=== PATIENT | male | born 1935 | race Caucasian/White ===

== ENCOUNTER 2017-07-20 20:34 | Inpatient (IN) | payer OTHER ==
[~2017-07-20] VITALS: Ht 185.4 cm; Wt 107.5 kg
[~2017-07-20 20:34] MED LIST: ALBU2.5V7 INH; ALPHAGANP LEFT EYE; ASPI81TA2 PO; BRIN10DR EACH EYE; CELE200C PO; GLU850 PO; LATA2.5D2 EACH EYE; MONT10TA22 PO; OMEG1CAP55 PO; RESEYE EACH EYE; TRELEGY IH
[2017-07-20 20:36] VITALS: BP_SYST 122
[2017-07-20] MEDS ORDERED: ADENOSINE 6MG/2ML VIAL IVP ONE ×2 (21:00→21:30)
[2017-07-20] MEDS ORDERED: NACL 0.9% 1,000 ML IV ONE ×3 (21:00→23:30)
[2017-07-20 21:18] LABS: BASOPHILS % (AUTO) 0.3 % (0.0-2.0); EOSINOPHILS # (AUTO) 0.3 K/uL (0.0-0.4); EOSINOPHILS % (AUTO) 1.9 % (0.0-4.0); HEMATOCRIT 48.3 % (36-54); HEMOGLOBIN 16.3 g/dL (14.0-18.0); LYMPHOCYTES # (AUTO) 1.3 K/uL (1.0-5.5); LYMPHOCYTES % (AUTO) 8.9 % (20.5-51.5); MEAN CORPUSCULAR HEMOGLOBIN 30 pg (27-31); MEAN CORPUSCULAR HGB CONC 34 % (32-36); MEAN CORPUSCULAR VOLUME 90 fL (79.0-98.0); MONOCYTES # (AUTO) 0.6 K/uL (0.0-1.0); MONOCYTES % (AUTO) 4.2 % (1.7-9.3); NEUTROPHILS # (AUTO) 11.9 K/uL (1.8-7.7); NEUTROPHILS % (AUTO) 84.7 % (40.0-70.0); PLATELET COUNT (AUTO) 222 K/uL (130-430); RED BLOOD CELL COUNT(AUTO) 5.37 MIL/uL (4.2-6.2); RED CELL DISTRIBUTION WIDTH 13.9 % (9.0-15.0); WHITE BLOOD COUNT (AUTO) 14.1 K/uL (4.8-10.8)
[2017-07-20 21:39] LABS: ANION GAP 9 (5-15); CALCIUM 8.9 mg/dL (8.4-11.0); CHLORIDE 104 mmol/L (98-107); CREATININE 1.06 mg/dL (0.55-1.30); GLUCOSE 153 mg/dL (70-99); POTASSIUM 3.3 mmol/L (3.5-5.1); SODIUM SERUM 140 mmol/L (136-145); UREA NITROGEN, BLOOD 30 mg/dL (8-21)
[2017-07-20] MEDS ORDERED: METOPROLOL TARTRATE 5 MG/5 ML VIAL IVP ONE (21:45)
[2017-07-20 21:50] LABS: ALANINE AMINOTRANSFERASE 40 U/L (12-78); ALBUMIN 2.6 g/dL (3.4-4.8); ASPARTATE AMINOTRANSFERASE 28 U/L (10-37); TOTAL BILIRUBIN 1.1 mg/dL (0.0-1.0)
[2017-07-20] MEDS ORDERED: ASPIRIN 325 MG TABLET PO ONE (22:00)
[2017-07-20] MEDS ORDERED: DULR10 RC (22:18)
[2017-07-20] MEDS ORDERED: INSU100V11 SQ (22:18)
[2017-07-20] MEDS ORDERED: DOCU250C PO (22:18)
[2017-07-20] MEDS ORDERED: FLO110 INH (22:18)
[2017-07-20] MEDS ORDERED: MAGN400O4 PO (22:18)
[2017-07-20] MEDS ORDERED: SSNOVOLOG SUBCUT (22:18)
[2017-07-20] MEDS ORDERED: ATRMDI INH (22:18)
[2017-07-20] MEDS ORDERED: ASPI81TA2 PO (22:18)
[2017-07-20] MEDS ORDERED: TRAM50TA92 PO (22:18)
[2017-07-20] MEDS ORDERED: DILTIAZEM HCL 25 MG/5 ML VIAL IVP ONE (23:15)
[2017-07-20] MEDS ORDERED: POTASSIUM CHLORIDE 20 MEQ TAB.PRT.SR PO ONE (23:30)
[2017-07-20] MEDS ORDERED: cefTRIAXone 1 GM IVPB PREMIX 50 ML IV ONE (23:30)
[2017-07-20] MEDS ORDERED: ENOXAPARIN SODIUM 100 MG/ML SYRINGE SUBCUT ONE (23:30)
[2017-07-20 23:32] LABS: BILIRUBIN,URINE 1+ (NEGATIVE); BLOOD, URINE 3+ (NEGATIVE); CLARITY/URINE CLOUDY (CLEAR); COLOR,URINE YELLOW (YELLOW); GLUCOSE,URINE NEGATIVE (NEGATIVE); KETONES,URINE TRACE (NEGATIVE); LEUKOCYTE ESTERASE ,URINE 1+ (NEGATIVE); NITRITE, URINE NEGATIVE (NEGATIVE); PROTEIN URINE 2+ (NEGATIVE); UROBILINOGEN,URINE 0.2 (0.2-1.0)
[2017-07-20 23:45] LABS: BACTERIA,URINE MODERATE /HPF (None Seen); RBC,URINE 20-50 /HPF (0-3)
[2017-07-20] MEDS ORDERED: CELECOXIB 200 MG CAPSULE PO PRN (23:45)
[2017-07-20] MEDS ORDERED: BISACODYL 10 MG/SUPPOSITORY RC SCH (23:45)
[2017-07-20] MEDS ORDERED: NACL 0.9% 1,000 ML IV SCH (23:45)
[2017-07-20] MEDS ORDERED: MILK OF MAGNESIA 30 ML UDC PO SCH (23:45)
[2017-07-20] MEDS ORDERED: traMADol HCL HCL 50 MG TABLET (ULTRAM) PO PRN (23:45)
[2017-07-20 23:46] LABS: MUCUS,URINE None Seen /LPF (None Seen); URIC ACID CRYSTALS,URINE 0-10 /HPF (None Seen)
[2017-07-21] VITALS (7 sets, daily range): BP systolic 94–135
[2017-07-21] MEDS ORDERED: DEXTROSE 50% JECT 50 ML DISP.SYRIN IVP PRN
[2017-07-21] MEDS ORDERED: 0.45% NS 500 ML IV ONE
[2017-07-21] MEDS ORDERED: DIGOXIN 0.5 MG/2 ML AMP IVP SCH (00:15)
[2017-07-21] MEDS ORDERED: cefTRIAXone 1 GM IVPB PREMIX 50 ML IV ONE (00:24)
[2017-07-21] MEDS: DILTIAZEM HCL 30 MG TABLET PO SCH ×4 (00:32→17:34)
[2017-07-21] MEDS: PANTOPRAZOLE SODIUM 40 MG/VIAL (PROTONIX) IVP SCH ×2 (00:46→08:46)
[2017-07-21 01:13] LABS: INR 1.1 (0.80-1.20); PROTHROMBIN TIME 10.8 SECS (9.5-12.5)
[2017-07-21] MEDS: INSULIN REGULAR, HUMAN 100 UNITS/ML, 10 ML VIAL (novoLIN R) SUBCUT PRN ×2 (06:02→17:37)
[2017-07-21 07:50] LABS: ALANINE AMINOTRANSFERASE 47 U/L (12-78); ALBUMIN 2.2 g/dL (3.4-4.8); ANION GAP 11 (5-15); ASPARTATE AMINOTRANSFERASE 30 U/L (10-37); CALCIUM 8.2 mg/dL (8.4-11.0); CHLORIDE 104 mmol/L (98-107); CHOLESTEROL 135 mg/dL (<200); CREATININE 1.01 mg/dL (0.55-1.30); GLUCOSE 143 mg/dL (70-99); HDL CHOLESTEROL 48 mg/dL (>45); LDL CHOLESTEROL 74 mg/dL (<100); LIPASE 96 U/L (73-393); POTASSIUM 4.1 mmol/L (3.5-5.1); SODIUM SERUM 137 mmol/L (136-145); THYROID STIMULATING HORMONE 1.74 uIu/mL (0.34-4.82); TOTAL BILIRUBIN 0.9 mg/dL (0.0-1.0); TRIGLYCERIDES 60 mg/dL (30-150); UREA NITROGEN, BLOOD 28 mg/dL (8-21)
[2017-07-21 07:58] LABS: BASOPHILS % (AUTO) 0.2 % (0.0-2.0); EOSINOPHILS # (AUTO) 0.5 K/uL (0.0-0.4); EOSINOPHILS % (AUTO) 2.9 % (0.0-4.0); HEMATOCRIT 44.8 % (36-54); HEMOGLOBIN 15.1 g/dL (14.0-18.0); LYMPHOCYTES # (AUTO) 1.3 K/uL (1.0-5.5); LYMPHOCYTES % (AUTO) 7.2 % (20.5-51.5); MEAN CORPUSCULAR HEMOGLOBIN 31 pg (27-31); MEAN CORPUSCULAR HGB CONC 34 % (32-36); MEAN CORPUSCULAR VOLUME 90 fL (79.0-98.0); MONOCYTES # (AUTO) 0.9 K/uL (0.0-1.0); MONOCYTES % (AUTO) 5.1 % (1.7-9.3); NEUTROPHILS # (AUTO) 15.5 K/uL (1.8-7.7); NEUTROPHILS % (AUTO) 84.6 % (40.0-70.0); RED BLOOD CELL COUNT(AUTO) 4.97 MIL/uL (4.2-6.2); RED CELL DISTRIBUTION WIDTH 14.2 % (9.0-15.0)
[2017-07-21 08:27] LABS: WHITE BLOOD COUNT (AUTO) 18.2 K/uL (4.8-10.8)
[2017-07-21] MEDS: DORZOLAMIDE 2% OPHTHALMIC SOLN 5ML OP SCH ×4 (08:45→20:49)
[2017-07-21] MEDS: MONTELUKAST 10 MG TABLET PO SCH (08:46)
[2017-07-21] MEDS: ASPIRIN 81 MG TAB.CHEW PO SCH (08:46)
[2017-07-21] MEDS: ENOXAPARIN SODIUM 100 MG/ML SYRINGE SUBCUT SCH ×2 (08:46→20:50)
[2017-07-21] MEDS ORDERED: DIATR MEGLU/DIATRIZ SOD 30 ML SOLUTION PO ONE (08:46)
[2017-07-21] MEDS ORDERED: AMIODARONE HCL 200 MG TABLET PO SCH (09:00)
[2017-07-21] MEDS ORDERED: FLUTICASONE PROPIONATE 110 mCg/ACTUATION, 12 GM AER.W.ADAP INH SCH (09:00)
[2017-07-21 09:46] LABS: PLATELET COUNT (AUTO) 298 K/uL (130-430)
[2017-07-21] MEDS ORDERED: IOHEXOL 100 ML IV ONE (11:27)
[2017-07-21] MEDS ORDERED: AMIODARONE HCL 200 MG TABLET PO ONE (15:30)
[2017-07-21] MEDS: PIPERACILLIN/TAZO 3.375/DEX-IS 50 ML IV SCH ×2 (15:35→21:08)
[2017-07-21] MEDS ORDERED: DILTIAZEM HCL 125 MG in D5W 100 ML IV SCH ×2 (17:45→18:00)
[2017-07-21] MEDS: LATANOPROST 2.5 ML DROPS (XALATAN) OP SCH (18:23)
[2017-07-21] MEDS ORDERED: MAGNESIUM CITRATE 300 ML ORAL SOLUTION PO ONE (18:57)
[2017-07-21] MEDS ORDERED: MINERAL OIL 30 ML UDC PO ONE (18:58)
[2017-07-21] MEDS: IPRATROPIUM BROM 0.5 MG/2.5 ML VIAL.NEB (ATROVENT) INH SCH (19:51)
[2017-07-21] MEDS: METOPROLOL TARTRATE 5 MG/5 ML VIAL IVP PRN ×2 (20:42→23:52)
[2017-07-21] MEDS: cycloSPORINE 0.05%, 0.4 ML OPHTHALMIC EMULSION DROPERETTE OP SCH (20:49)
[2017-07-21] MEDS: BRIMONIDINE TARTRATE 0.2% 5 mL EYE DROPS OP SCH (21:00)
[2017-07-21] MEDS ORDERED: BRIMONIDINE TARTRATE 0.1% 5 mL EYE DROPS OP SCH (21:00)
[2017-07-21] MEDS: AMIODARONE HCL 200 MG TABLET PO SCH (21:08)
[2017-07-22] VITALS (14 sets, daily range): BP systolic 91–186
[2017-07-22] MEDS: METOPROLOL TARTRATE 5 MG/5 ML VIAL IVP PRN ×3 (02:58→09:16)
[2017-07-22] MEDS: PIPERACILLIN/TAZO 3.375/DEX-IS 50 ML IV SCH ×3 (05:26→22:07)
[2017-07-22] MEDS: IPRATROPIUM BROM 0.5 MG/2.5 ML VIAL.NEB (ATROVENT) INH SCH ×4 (06:55→19:37)
[2017-07-22 07:13] LABS: BASOPHILS % (AUTO) 0.3 % (0.0-2.0); EOSINOPHILS # (AUTO) 0.1 K/uL (0.0-0.4); EOSINOPHILS % (AUTO) 0.5 % (0.0-4.0); HEMATOCRIT 46.7 % (36-54); HEMOGLOBIN 15.6 g/dL (14.0-18.0); LYMPHOCYTES # (AUTO) 0.8 K/uL (1.0-5.5); LYMPHOCYTES % (AUTO) 5.2 % (20.5-51.5); MEAN CORPUSCULAR HEMOGLOBIN 30 pg (27-31); MEAN CORPUSCULAR HGB CONC 33 % (32-36); MEAN CORPUSCULAR VOLUME 90 fL (79.0-98.0); MONOCYTES # (AUTO) 0.4 K/uL (0.0-1.0); MONOCYTES % (AUTO) 2.7 % (1.7-9.3); NEUTROPHILS # (AUTO) 14.7 K/uL (1.8-7.7); NEUTROPHILS % (AUTO) 91.3 % (40.0-70.0); PLATELET COUNT (AUTO) 290 K/uL (130-430); RED CELL DISTRIBUTION WIDTH 14.1 % (9.0-15.0)
[2017-07-22 08:00] LABS: ANION GAP 13 (5-15); CHLORIDE 104 mmol/L (98-107); POTASSIUM 3.4 mmol/L (3.5-5.1); SODIUM SERUM 137 mmol/L (136-145)
[2017-07-22 08:01] LABS: ALANINE AMINOTRANSFERASE 37 U/L (12-78); ALBUMIN 2.4 g/dL (3.4-4.8); ASPARTATE AMINOTRANSFERASE 20 U/L (10-37); CALCIUM 8.5 mg/dL (8.4-11.0); CREATININE 1.04 mg/dL (0.55-1.30); GLUCOSE 108 mg/dL (70-99); TOTAL BILIRUBIN 1.1 mg/dL (0.0-1.0); UREA NITROGEN, BLOOD 27 mg/dL (8-21)
[2017-07-22] MEDS: AMIODARONE HCL 200 MG TABLET PO SCH (08:08)
[2017-07-22] MEDS: ASPIRIN 81 MG TAB.CHEW PO SCH (08:09)
[2017-07-22] MEDS: DOCUSATE SODIUM 250 MG CAPSULE PO SCH (08:09)
[2017-07-22] MEDS: MONTELUKAST 10 MG TABLET PO SCH (08:09)
[2017-07-22] MEDS: PANTOPRAZOLE SODIUM 40 MG/VIAL (PROTONIX) IVP SCH (08:10)
[2017-07-22] MEDS: BRIMONIDINE TARTRATE 0.2% 5 mL EYE DROPS OP SCH ×3 (08:12→21:24)
[2017-07-22] MEDS: cycloSPORINE 0.05%, 0.4 ML OPHTHALMIC EMULSION DROPERETTE OP SCH ×2 (08:14→21:24)
[2017-07-22] MEDS: DORZOLAMIDE 2% OPHTHALMIC SOLN 5ML OP SCH ×4 (08:15→21:33)
[2017-07-22] MEDS: ENOXAPARIN SODIUM 100 MG/ML SYRINGE SUBCUT SCH (08:15)
[2017-07-22] MEDS: DILTIAZEM HCL 60 MG TABLET PO SCH ×3 (08:30→21:25)
[2017-07-22] MEDS ORDERED: DILTIAZEM HCL 60 MG TABLET ONE (08:50)
[2017-07-22] MEDS ORDERED: METOPROLOL TARTRATE 5 MG/5 ML VIAL IVP PRN (11:30)
[2017-07-22] MEDS ORDERED: POTASSIUM CHLORIDE 20 MEQ TAB.PRT.SR PO ONE (12:45)
[2017-07-22] MEDS: ALBUTEROL SULFATE 0.083% 2.5 MG/3 ML VIAL.NEB INH PRN ×2 (13:08→14:47)
[2017-07-22] MEDS: INSULIN REGULAR, HUMAN 100 UNITS/ML, 10 ML VIAL (novoLIN R) SUBCUT PRN ×3 (13:46→22:46)
[2017-07-22] MEDS: FLUTICASONE FUROATE 100 MCG BLST.W.DEV INH SCH (13:48)
[2017-07-22] MEDS ORDERED: FUROSEMIDE 20 MG/2 ML VIAL IVP ONE (15:45)
[2017-07-22] MEDS ORDERED: methylPREDNISolone SOD SUCC/PF 62.5 MG/ML VIAL IVP ONE (15:45)
[2017-07-22] MEDS ORDERED: PROPOFOL DRIP 100 ML IV ONE (17:22)
[2017-07-22] MEDS: LevALBUTEROL HCL 1.25 MG/0.5 ML *CONC.* VIAL.NEB (XOPENEX CONC.) INH SCH (19:38)
[2017-07-22] MEDS: LATANOPROST 2.5 ML DROPS (XALATAN) OP SCH (19:43)
[2017-07-22] MEDS ORDERED: ETOMIDATE 20 MG/ 10 ML VIAL (AMIDATE) IVP ONE (20:11)
[2017-07-22] MEDS ORDERED: SUCCINYLCHOLINE CHLORIDE 20 MG/ML(QUELICIN) IVP ONE (20:11)
[2017-07-22 20:29] LABS: INR 1.1 (0.80-1.20); PROTHROMBIN TIME 11.4 SECS (9.5-12.5)
[2017-07-22] MEDS ORDERED: *HEPARIN PER PHARMACY XX PRN (20:50)
[2017-07-22] MEDS: POTASSIUM CHLORIDE 20 MEQ TAB.PRT.SR PO SCH (21:00)
[2017-07-22] MEDS ORDERED: AMIODARONE HCL 200 MG TABLET PO SCH (21:00)
[2017-07-22] MEDS: methylPREDNISolone SOD SUCC/PF 62.5 MG/ML VIAL IVP SCH (21:26)
[2017-07-22 21:36] LABS: BASOPHILS % (AUTO) 0.2 % (0.0-2.0); EOSINOPHILS % (AUTO) 0.1 % (0.0-4.0); HEMATOCRIT 43.2 % (36-54); HEMOGLOBIN 14.3 g/dL (14.0-18.0); LYMPHOCYTES # (AUTO) 0.3 K/uL (1.0-5.5); MEAN CORPUSCULAR HEMOGLOBIN 30 pg (27-31); MEAN CORPUSCULAR HGB CONC 33 % (32-36); MEAN CORPUSCULAR VOLUME 90 fL (79.0-98.0); MONOCYTES # (AUTO) 0.2 K/uL (0.0-1.0); MONOCYTES % (AUTO) 1.5 % (1.7-9.3); NEUTROPHILS # (AUTO) 13.1 K/uL (1.8-7.7); NEUTROPHILS % (AUTO) 96.2 % (40.0-70.0); PLATELET COUNT (AUTO) 270 K/uL (130-430); RED BLOOD CELL COUNT(AUTO) 4.78 MIL/uL (4.2-6.2); RED CELL DISTRIBUTION WIDTH 13.8 % (9.0-15.0); WHITE BLOOD COUNT (AUTO) 13.6 K/uL (4.8-10.8)
[2017-07-22 21:39] LABS: ANION GAP 10 (5-15); CALCIUM 8.3 mg/dL (8.4-11.0); CHLORIDE 105 mmol/L (98-107); CREATININE 1.33 mg/dL (0.55-1.30); GLUCOSE 168 mg/dL (70-99); POTASSIUM 3.8 mmol/L (3.5-5.1); SODIUM SERUM 138 mmol/L (136-145); UREA NITROGEN, BLOOD 33 mg/dL (8-21)
[2017-07-22] MEDS: HEPARIN 25,000 UNITS/D5W 250ML 250 ML IV PRN (21:39)
[2017-07-22 21:44] LABS: ALANINE AMINOTRANSFERASE 31 U/L (12-78); ALBUMIN 2.3 g/dL (3.4-4.8); ASPARTATE AMINOTRANSFERASE 19 U/L (10-37)
[2017-07-22] MEDS: D5LR 1,000 ML IV SCH (22:54)
[2017-07-22] MEDS: POTASSIUM CHLORIDE 20 MEQ/PKT PACKET PO SCH (23:01)
[2017-07-22] MEDS ORDERED: POTASSIUM CHLORIDE 20 MEQ/PKT PACKET ONE (23:05)
[2017-07-23] VITALS (33 sets, daily range): BP systolic 94–155
[2017-07-23] MEDS: LevALBUTEROL HCL 1.25 MG/0.5 ML *CONC.* VIAL.NEB (XOPENEX CONC.) INH SCH ×4 (00:56→19:58)
[2017-07-23] MEDS: IPRATROPIUM BROM 0.5 MG/2.5 ML VIAL.NEB (ATROVENT) INH SCH ×4 (00:57→19:58)
[2017-07-23] MEDS ORDERED: HEPARIN SODIUM,PORCINE 2000 UNITS/0.4 ML BOLUS IVP PRN (02:00)
[2017-07-23] MEDS ORDERED: HEPARIN SODIUM,PORCINE 3000 UNITS/0.6 ML BOLUS IVP PRN (02:00)
[2017-07-23 04:36] LABS: BASOPHILS % (AUTO) 0.2 % (0.0-2.0); HEMATOCRIT 42.5 % (36-54); HEMOGLOBIN 14.1 g/dL (14.0-18.0); LYMPHOCYTES # (AUTO) 0.4 K/uL (1.0-5.5); LYMPHOCYTES % (AUTO) 3.4 % (20.5-51.5); MEAN CORPUSCULAR HEMOGLOBIN 30 pg (27-31); MEAN CORPUSCULAR HGB CONC 33 % (32-36); MEAN CORPUSCULAR VOLUME 90 fL (79.0-98.0); MONOCYTES # (AUTO) 0.2 K/uL (0.0-1.0); MONOCYTES % (AUTO) 1.4 % (1.7-9.3); NEUTROPHILS # (AUTO) 10.5 K/uL (1.8-7.7); PLATELET COUNT (AUTO) 264 K/uL (130-430); RED BLOOD CELL COUNT(AUTO) 4.73 MIL/uL (4.2-6.2); RED CELL DISTRIBUTION WIDTH 13.9 % (9.0-15.0); WHITE BLOOD COUNT (AUTO) 11.1 K/uL (4.8-10.8)
[2017-07-23 04:45] LABS: ALANINE AMINOTRANSFERASE 30 U/L (12-78); ALBUMIN 2.1 g/dL (3.4-4.8); ANION GAP 8 (5-15); ASPARTATE AMINOTRANSFERASE 17 U/L (10-37); CALCIUM 8.2 mg/dL (8.4-11.0); CHLORIDE 102 mmol/L (98-107); CREATININE 1.28 mg/dL (0.55-1.30); GLUCOSE 276 mg/dL (70-99); POTASSIUM 3.7 mmol/L (3.5-5.1); SODIUM SERUM 134 mmol/L (136-145); TOTAL BILIRUBIN 0.8 mg/dL (0.0-1.0); UREA NITROGEN, BLOOD 35 mg/dL (8-21)
[2017-07-23] MEDS: PROPOFOL DRIP 100 ML IV PRN ×3 (04:59→18:30)
[2017-07-23] MEDS: PIPERACILLIN/TAZO 3.375/DEX-IS 50 ML IV SCH ×3 (05:04→21:39)
[2017-07-23] MEDS: methylPREDNISolone SOD SUCC/PF 62.5 MG/ML VIAL IVP SCH ×3 (05:05→21:39)
[2017-07-23] MEDS: DILTIAZEM HCL 60 MG TABLET PO SCH (05:05)
[2017-07-23] MEDS: INSULIN REGULAR, HUMAN 100 UNITS/ML, 10 ML VIAL (novoLIN R) SUBCUT PRN ×4 (06:28→21:29)
[2017-07-23] MEDS: POTASSIUM CHLORIDE 20 MEQ/PKT PACKET PO SCH ×2 (08:09→21:23)
[2017-07-23] MEDS: ASPIRIN 81 MG TAB.CHEW PO SCH (08:09)
[2017-07-23] MEDS: MONTELUKAST 10 MG TABLET PO SCH (08:09)
[2017-07-23] MEDS: POTASSIUM CHLORIDE 20 MEQ TAB.PRT.SR PO SCH (08:09)
[2017-07-23] MEDS: PANTOPRAZOLE SODIUM 40 MG/VIAL (PROTONIX) IVP SCH (08:10)
[2017-07-23] MEDS: AMIODARONE HCL 200 MG TABLET PO SCH ×2 (08:10→21:24)
[2017-07-23] MEDS: BRIMONIDINE TARTRATE 0.2% 5 mL EYE DROPS OP SCH ×3 (08:12→21:27)
[2017-07-23] MEDS: DORZOLAMIDE 2% OPHTHALMIC SOLN 5ML OP SCH ×4 (08:13→21:25)
[2017-07-23] MEDS: FLUTICASONE FUROATE 100 MCG BLST.W.DEV INH SCH (08:13)
[2017-07-23] MEDS: cycloSPORINE 0.05%, 0.4 ML OPHTHALMIC EMULSION DROPERETTE OP SCH ×2 (08:13→21:26)
[2017-07-23] MEDS: D5LR 1,000 ML IV SCH ×2 (08:16→18:30)
[2017-07-23] MEDS: HEPARIN 25,000 UNITS/D5W 250ML 250 ML IV PRN (16:49)
[2017-07-23] MEDS: LATANOPROST 2.5 ML DROPS (XALATAN) OP SCH (17:07)
[2017-07-24] VITALS (31 sets, daily range): BP systolic 106–148
[2017-07-24] MEDS: IPRATROPIUM BROM 0.5 MG/2.5 ML VIAL.NEB (ATROVENT) INH SCH ×4 (01:51→19:59)
[2017-07-24] MEDS: LevALBUTEROL HCL 1.25 MG/0.5 ML *CONC.* VIAL.NEB (XOPENEX CONC.) INH SCH ×4 (01:52→19:59)
[2017-07-24] MEDS: PROPOFOL DRIP 100 ML IV PRN ×2 (02:19→09:12)
[2017-07-24 05:59] LABS: HEMATOCRIT 40.7 % (36-54); HEMOGLOBIN 13.4 g/dL (14.0-18.0); LYMPHOCYTES # (AUTO) 0.3 K/uL (1.0-5.5); LYMPHOCYTES % (AUTO) 2.6 % (20.5-51.5); MEAN CORPUSCULAR HEMOGLOBIN 30 pg (27-31); MEAN CORPUSCULAR HGB CONC 33 % (32-36); MEAN CORPUSCULAR VOLUME 90 fL (79.0-98.0); MONOCYTES # (AUTO) 0.3 K/uL (0.0-1.0); MONOCYTES % (AUTO) 2.2 % (1.7-9.3); NEUTROPHILS % (AUTO) 95.2 % (40.0-70.0); PLATELET COUNT (AUTO) 267 K/uL (130-430); RED BLOOD CELL COUNT(AUTO) 4.52 MIL/uL (4.2-6.2); RED CELL DISTRIBUTION WIDTH 13.9 % (9.0-15.0); WHITE BLOOD COUNT (AUTO) 12.6 K/uL (4.8-10.8)
[2017-07-24 06:08] LABS: ANION GAP 10 (5-15); CALCIUM 8.2 mg/dL (8.4-11.0); CHLORIDE 104 mmol/L (98-107); CREATININE 1.16 mg/dL (0.55-1.30); GLUCOSE 393 mg/dL (70-99); POTASSIUM 3.7 mmol/L (3.5-5.1); SODIUM SERUM 138 mmol/L (136-145); UREA NITROGEN, BLOOD 36 mg/dL (8-21)
[2017-07-24] MEDS: PIPERACILLIN/TAZO 3.375/DEX-IS 50 ML IV SCH ×3 (06:10→21:39)
[2017-07-24] MEDS: D5LR 1,000 ML IV SCH (06:15)
[2017-07-24 06:17] LABS: ALANINE AMINOTRANSFERASE 28 U/L (12-78); ALBUMIN 2.2 g/dL (3.4-4.8); ASPARTATE AMINOTRANSFERASE 16 U/L (10-37); TOTAL BILIRUBIN 0.6 mg/dL (0.0-1.0)
[2017-07-24] MEDS: INSULIN REGULAR, HUMAN 100 UNITS/ML, 10 ML VIAL (novoLIN R) SUBCUT PRN ×4 (06:36→20:18)
[2017-07-24] MEDS: methylPREDNISolone SOD SUCC/PF 62.5 MG/ML VIAL IVP SCH ×2 (06:37→14:32)
[2017-07-24] MEDS: FLUTICASONE FUROATE 100 MCG BLST.W.DEV INH SCH (09:00)
[2017-07-24] MEDS: PANTOPRAZOLE SODIUM 40 MG/VIAL (PROTONIX) IVP SCH (09:15)
[2017-07-24] MEDS: DORZOLAMIDE 2% OPHTHALMIC SOLN 5ML OP SCH ×4 (09:15→20:12)
[2017-07-24] MEDS: BRIMONIDINE TARTRATE 0.2% 5 mL EYE DROPS OP SCH ×3 (09:16→20:11)
[2017-07-24] MEDS: ASPIRIN 81 MG TAB.CHEW PO SCH (09:16)
[2017-07-24] MEDS: MONTELUKAST 10 MG TABLET PO SCH (09:17)
[2017-07-24] MEDS: POTASSIUM CHLORIDE 20 MEQ/PKT PACKET PO SCH (09:20)
[2017-07-24] MEDS: AMIODARONE HCL 200 MG TABLET PO SCH ×2 (09:20→20:13)
[2017-07-24] MEDS: cycloSPORINE 0.05%, 0.4 ML OPHTHALMIC EMULSION DROPERETTE OP SCH ×2 (10:32→20:12)
[2017-07-24] MEDS ORDERED: INSULIN NPH 100 UNITS/ML 10 ML VIAL SUBCUT ONE (11:30)
[2017-07-24] MEDS: LR 1,000 ML IV SCH (13:01)
[2017-07-24] MEDS: LATANOPROST 2.5 ML DROPS (XALATAN) OP SCH (17:33)
[2017-07-24] MEDS: INSULIN NPH 100 UNITS/ML 10 ML VIAL SUBCUT SCH (17:41)
[2017-07-24] MEDS: HEPARIN 25,000 UNITS/D5W 250ML 250 ML IV PRN (19:36)
[2017-07-24] MEDS: methylPREDNISolone SOD SUCC 40 MG/ML VIAL IVP SCH (20:10)
[2017-07-25] VITALS (24 sets, daily range): BP systolic 129–167
[2017-07-25] MEDS: LevALBUTEROL HCL 1.25 MG/0.5 ML *CONC.* VIAL.NEB (XOPENEX CONC.) INH SCH ×4 (00:46→19:39)
[2017-07-25] MEDS: IPRATROPIUM BROM 0.5 MG/2.5 ML VIAL.NEB (ATROVENT) INH SCH ×4 (00:46→19:39)
[2017-07-25] MEDS: LR 1,000 ML IV SCH (04:20)
[2017-07-25] MEDS: IPRATROPIUM BROM 0.5 MG/2.5 ML VIAL.NEB (ATROVENT) INH PRN (05:39)
[2017-07-25] MEDS: LevALBUTEROL HCL 1.25 MG/0.5 ML *CONC.* VIAL.NEB (XOPENEX CONC.) INH PRN (05:40)
[2017-07-25] MEDS: PIPERACILLIN/TAZO 3.375/DEX-IS 50 ML IV SCH ×3 (06:14→21:08)
[2017-07-25] MEDS: INSULIN NPH 100 UNITS/ML 10 ML VIAL SUBCUT SCH ×2 (06:15→17:21)
[2017-07-25] MEDS: INSULIN REGULAR, HUMAN 100 UNITS/ML, 10 ML VIAL (novoLIN R) SUBCUT PRN ×4 (06:17→20:21)
[2017-07-25 06:29] LABS: BASOPHILS % (AUTO) 0.3 % (0.0-2.0); EOSINOPHILS % (AUTO) 0.1 % (0.0-4.0); HEMOGLOBIN 13.8 g/dL (14.0-18.0); LYMPHOCYTES # (AUTO) 0.2 K/uL (1.0-5.5); LYMPHOCYTES % (AUTO) 1.8 % (20.5-51.5); MEAN CORPUSCULAR HEMOGLOBIN 31 pg (27-31); MEAN CORPUSCULAR HGB CONC 34 % (32-36); MEAN CORPUSCULAR VOLUME 90 fL (79.0-98.0); MONOCYTES # (AUTO) 0.4 K/uL (0.0-1.0); MONOCYTES % (AUTO) 2.9 % (1.7-9.3); NEUTROPHILS # (AUTO) 12.9 K/uL (1.8-7.7); NEUTROPHILS % (AUTO) 94.9 % (40.0-70.0); PLATELET COUNT (AUTO) 269 K/uL (130-430); RED BLOOD CELL COUNT(AUTO) 4.53 MIL/uL (4.2-6.2); RED CELL DISTRIBUTION WIDTH 13.8 % (9.0-15.0); WHITE BLOOD COUNT (AUTO) 13.6 K/uL (4.8-10.8)
[2017-07-25 06:50] LABS: ANION GAP 6 (5-15); CALCIUM 8.4 mg/dL (8.4-11.0); CHLORIDE 107 mmol/L (98-107); CREATININE 0.95 mg/dL (0.55-1.30); GLUCOSE 296 mg/dL (70-99); POTASSIUM 4.6 mmol/L (3.5-5.1); SODIUM SERUM 141 mmol/L (136-145); UREA NITROGEN, BLOOD 37 mg/dL (8-21)
[2017-07-25 07:00] LABS: ALANINE AMINOTRANSFERASE 32 U/L (12-78); ALBUMIN 2.2 g/dL (3.4-4.8); ASPARTATE AMINOTRANSFERASE 17 U/L (10-37); TOTAL BILIRUBIN 0.5 mg/dL (0.0-1.0)
[2017-07-25] MEDS: FLUTICASONE FUROATE 100 MCG BLST.W.DEV INH SCH (08:51)
[2017-07-25] MEDS: BRIMONIDINE TARTRATE 0.2% 5 mL EYE DROPS OP SCH ×3 (08:53→20:10)
[2017-07-25] MEDS: POTASSIUM CHLORIDE 20 MEQ/PKT PACKET PO SCH (08:53)
[2017-07-25] MEDS: cycloSPORINE 0.05%, 0.4 ML OPHTHALMIC EMULSION DROPERETTE OP SCH ×2 (08:53→20:11)
[2017-07-25] MEDS: DORZOLAMIDE 2% OPHTHALMIC SOLN 5ML OP SCH ×4 (08:53→20:11)
[2017-07-25] MEDS: ASPIRIN 81 MG TAB.CHEW PO SCH (08:54)
[2017-07-25] MEDS: DOCUSATE SODIUM 250 MG CAPSULE PO SCH (08:54)
[2017-07-25] MEDS: AMIODARONE HCL 200 MG TABLET PO SCH ×2 (08:54→20:12)
[2017-07-25] MEDS: METOPROLOL TARTRATE 25 MG TABLET PO SCH ×2 (08:58→20:12)
[2017-07-25] MEDS: methylPREDNISolone SOD SUCC 40 MG/ML VIAL IVP SCH ×2 (08:58→20:10)
[2017-07-25] MEDS: MONTELUKAST 10 MG TABLET PO SCH (08:59)
[2017-07-25] MEDS: PANTOPRAZOLE SODIUM 40 MG/VIAL (PROTONIX) IVP SCH (09:00)
[2017-07-25] MEDS ORDERED: FUROSEMIDE 20 MG/2 ML VIAL IVP ONE (14:30)
[2017-07-25] MEDS ORDERED: BISACODYL 10 MG/SUPPOSITORY RC PRN ×2 (15:15→15:30)
[2017-07-25] MEDS ORDERED: DOCUSATE SODIUM 250 MG CAPSULE PO PRN (15:15)
[2017-07-25] MEDS ORDERED: BISACODYL 5 MG TABLET.DR (DULCOLAX) PO PRN (15:30)
[2017-07-25] MEDS: RIVAROXABAN 20 MG TABLET PO SCH (17:18)
[2017-07-25] MEDS: LATANOPROST 2.5 ML DROPS (XALATAN) OP SCH (17:22)
[2017-07-25] MEDS: DOCUSATE SODIUM 100 MG CAPSULE PO SCH (20:12)
[2017-07-26] VITALS (18 sets, daily range): BP systolic 117–160
[2017-07-26] MEDS: LevALBUTEROL HCL 1.25 MG/0.5 ML *CONC.* VIAL.NEB (XOPENEX CONC.) INH SCH ×4 (00:11→19:21)
[2017-07-26] MEDS: IPRATROPIUM BROM 0.5 MG/2.5 ML VIAL.NEB (ATROVENT) INH SCH ×4 (00:11→19:21)
[2017-07-26 06:15] LABS: BASOPHILS # (AUTO) 0.3 K/uL (0.0-0.2); HEMATOCRIT 42.8 % (36-54); HEMOGLOBIN 14.4 g/dL (14.0-18.0); LYMPHOCYTES # (AUTO) 0.5 K/uL (1.0-5.5); LYMPHOCYTES % (AUTO) 3.3 % (20.5-51.5); MEAN CORPUSCULAR HEMOGLOBIN 30 pg (27-31); MEAN CORPUSCULAR HGB CONC 34 % (32-36); MEAN CORPUSCULAR VOLUME 89 fL (79.0-98.0); MONOCYTES # (AUTO) 0.5 K/uL (0.0-1.0); MONOCYTES % (AUTO) 3.7 % (1.7-9.3); NEUTROPHILS # (AUTO) 12.5 K/uL (1.8-7.7); PLATELET COUNT (AUTO) 333 K/uL (130-430); RED BLOOD CELL COUNT(AUTO) 4.78 MIL/uL (4.2-6.2); RED CELL DISTRIBUTION WIDTH 13.4 % (9.0-15.0); WHITE BLOOD COUNT (AUTO) 13.8 K/uL (4.8-10.8)
[2017-07-26] MEDS: PIPERACILLIN/TAZO 3.375/DEX-IS 50 ML IV SCH ×3 (06:17→22:01)
[2017-07-26] MEDS: INSULIN REGULAR, HUMAN 100 UNITS/ML, 10 ML VIAL (novoLIN R) SUBCUT PRN ×4 (06:18→22:21)
[2017-07-26 06:19] LABS: ALANINE AMINOTRANSFERASE 47 U/L (12-78); ALBUMIN 2.5 g/dL (3.4-4.8); ANION GAP 2 (5-15); ASPARTATE AMINOTRANSFERASE 26 U/L (10-37); CALCIUM 8.6 mg/dL (8.4-11.0); CHLORIDE 107 mmol/L (98-107); CREATININE 0.98 mg/dL (0.55-1.30); GLUCOSE 201 mg/dL (70-99); POTASSIUM 4.9 mmol/L (3.5-5.1); SODIUM SERUM 138 mmol/L (136-145); TOTAL BILIRUBIN 0.7 mg/dL (0.0-1.0); UREA NITROGEN, BLOOD 40 mg/dL (8-21)
[2017-07-26] MEDS: INSULIN NPH 100 UNITS/ML 10 ML VIAL SUBCUT SCH ×2 (06:19→17:29)
[2017-07-26] MEDS: PANTOPRAZOLE SODIUM 40 MG/VIAL (PROTONIX) IVP SCH (08:07)
[2017-07-26] MEDS: methylPREDNISolone SOD SUCC 40 MG/ML VIAL IVP SCH ×2 (08:07→22:01)
[2017-07-26] MEDS: FLUTICASONE FUROATE 100 MCG BLST.W.DEV INH SCH (08:07)
[2017-07-26] MEDS: BRIMONIDINE TARTRATE 0.2% 5 mL EYE DROPS OP SCH ×3 (08:08→22:05)
[2017-07-26] MEDS: cycloSPORINE 0.05%, 0.4 ML OPHTHALMIC EMULSION DROPERETTE OP SCH ×2 (08:09→22:05)
[2017-07-26] MEDS: DORZOLAMIDE 2% OPHTHALMIC SOLN 5ML OP SCH ×4 (08:09→22:06)
[2017-07-26] MEDS: MONTELUKAST 10 MG TABLET PO SCH (08:10)
[2017-07-26] MEDS: ASPIRIN 81 MG TAB.CHEW PO SCH (08:10)
[2017-07-26] MEDS: DOCUSATE SODIUM 100 MG CAPSULE PO SCH ×2 (08:10→22:03)
[2017-07-26] MEDS: METOPROLOL TARTRATE 25 MG TABLET PO SCH ×2 (08:11→22:02)
[2017-07-26] MEDS: AMIODARONE HCL 200 MG TABLET PO SCH ×2 (08:11→22:03)
[2017-07-26] MEDS: POTASSIUM CHLORIDE 20 MEQ/PKT PACKET PO SCH (08:12)
[2017-07-26] MEDS: RIVAROXABAN 20 MG TABLET PO SCH (17:30)
[2017-07-26] MEDS: LATANOPROST 2.5 ML DROPS (XALATAN) OP SCH (17:32)
[2017-07-26] MEDS: FAMOTIDINE 20 MG TABLET PO SCH (22:02)
[2017-07-27 00:19] VITALS: BP_SYST 142
[2017-07-27] MEDS: IPRATROPIUM BROM 0.5 MG/2.5 ML VIAL.NEB (ATROVENT) INH SCH ×3 (00:47→13:13)
[2017-07-27] MEDS: LevALBUTEROL HCL 1.25 MG/0.5 ML *CONC.* VIAL.NEB (XOPENEX CONC.) INH SCH ×3 (00:48→13:14)
[2017-07-27] MEDS: PIPERACILLIN/TAZO 3.375/DEX-IS 50 ML IV SCH ×2 (06:17→14:46)
[2017-07-27] MEDS: INSULIN NPH 100 UNITS/ML 10 ML VIAL SUBCUT SCH (06:19)
[2017-07-27 06:31] LABS: ANION GAP 6 (5-15); CALCIUM 8.2 mg/dL (8.4-11.0); CHLORIDE 104 mmol/L (98-107); CREATININE 0.85 mg/dL (0.55-1.30); GLUCOSE 115 mg/dL (70-99); POTASSIUM 4.4 mmol/L (3.5-5.1); SODIUM SERUM 137 mmol/L (136-145); UREA NITROGEN, BLOOD 33 mg/dL (8-21)
[2017-07-27 06:42] LABS: BASOPHILS % (AUTO) 0.3 % (0.0-2.0); EOSINOPHILS # (AUTO) 0.1 K/uL (0.0-0.4); EOSINOPHILS % (AUTO) 0.5 % (0.0-4.0); HEMATOCRIT 42.4 % (36-54); HEMOGLOBIN 14.3 g/dL (14.0-18.0); LYMPHOCYTES # (AUTO) 1.1 K/uL (1.0-5.5); LYMPHOCYTES % (AUTO) 8.2 % (20.5-51.5); MEAN CORPUSCULAR HEMOGLOBIN 30 pg (27-31); MEAN CORPUSCULAR HGB CONC 34 % (32-36); MEAN CORPUSCULAR VOLUME 89 fL (79.0-98.0); MONOCYTES # (AUTO) 0.5 K/uL (0.0-1.0); MONOCYTES % (AUTO) 3.7 % (1.7-9.3); NEUTROPHILS # (AUTO) 11.5 K/uL (1.8-7.7); NEUTROPHILS % (AUTO) 87.3 % (40.0-70.0); PLATELET COUNT (AUTO) 317 K/uL (130-430); RED BLOOD CELL COUNT(AUTO) 4.74 MIL/uL (4.2-6.2); RED CELL DISTRIBUTION WIDTH 13.7 % (9.0-15.0); WHITE BLOOD COUNT (AUTO) 13.2 K/uL (4.8-10.8)
[2017-07-27] MEDS: DOCUSATE SODIUM 100 MG CAPSULE PO SCH (08:40)
[2017-07-27] MEDS: AMIODARONE HCL 200 MG TABLET PO SCH (08:41)
[2017-07-27] MEDS: MONTELUKAST 10 MG TABLET PO SCH (08:41)
[2017-07-27] MEDS: FAMOTIDINE 20 MG TABLET PO SCH (08:41)
[2017-07-27] MEDS: METOPROLOL TARTRATE 25 MG TABLET PO SCH (08:41)
[2017-07-27] MEDS: ASPIRIN 81 MG TAB.CHEW PO SCH (08:41)
[2017-07-27] MEDS: POTASSIUM CHLORIDE 20 MEQ/PKT PACKET PO SCH (08:41)
[2017-07-27 08:42] VITALS: BP_SYST 114
[2017-07-27] MEDS: FLUTICASONE FUROATE 100 MCG BLST.W.DEV INH SCH (08:42)
[2017-07-27] MEDS: methylPREDNISolone SOD SUCC 40 MG/ML VIAL IVP SCH (08:43)
[2017-07-27] MEDS: BRIMONIDINE TARTRATE 0.2% 5 mL EYE DROPS OP SCH ×2 (08:44→14:47)
[2017-07-27] MEDS: DORZOLAMIDE 2% OPHTHALMIC SOLN 5ML OP SCH ×2 (08:44→14:46)
[2017-07-27] MEDS: cycloSPORINE 0.05%, 0.4 ML OPHTHALMIC EMULSION DROPERETTE OP SCH (08:45)
[2017-07-27] MEDS: LevALBUTEROL HCL 1.25 MG/0.5 ML *CONC.* VIAL.NEB (XOPENEX CONC.) INH PRN (09:34)
[2017-07-27] MEDS: IPRATROPIUM BROM 0.5 MG/2.5 ML VIAL.NEB (ATROVENT) INH PRN (09:34)
[2017-07-27 11:00] VITALS: BP_SYST 132
[2017-07-27 11:23] VITALS: BP_SYST 104
[2017-07-27] MEDS: INSULIN REGULAR, HUMAN 100 UNITS/ML, 10 ML VIAL (novoLIN R) SUBCUT PRN (11:59)
[2017-07-27 15:54] VITALS: BP_SYST 146
[2017-07-27] MEDS ORDERED: guaiFENesin ER 600 MG TAB PO SCH (21:00)
== END 2017-07-27 16:57 | DRG 871 ==
LOC: SED 20:34 → STU 23:17 → SIC 07-22 15:27 → STU 07-26 15:40
PROVIDERS: ADMIT Internal Medicine; ATTEND Internal Medicine
PROC: 0BH17EZ Insertion of Endotracheal Airway into Trachea, Via Natural or Artificial Opening (ICD-10-PCS; principal; 2017-07-22)
PROC: 5A1945Z Respiratory Ventilation, 24-96 Consecutive Hours (ICD-10-PCS; 2017-07-22)
PROC: 02HV33Z Insertion of Infusion Device into Superior Vena Cava, Percutaneous Approach (ICD-10-PCS; 2017-07-22)
PROC: B548ZZA Ultrasonography of Superior Vena Cava, Guidance (ICD-10-PCS; 2017-07-22)
DX: A41.9 Sepsis, unspecified organism (principal); J96.01 Acute respiratory failure with hypoxia; Z99.11 Dependence on respirator [ventilator] status; I82.402 Acute embolism and thrombosis of unspecified deep veins of left lower extremity; D68.59 Other primary thrombophilia; I27.29 Other secondary pulmonary hypertension; E86.0 Dehydration; I48.0 Paroxysmal atrial fibrillation; I47.1 Supraventricular tachycardia; I48.92 Unspecified atrial flutter; I27.81 Cor pulmonale (chronic); J44.1 Chronic obstructive pulmonary disease with (acute) exacerbation; N39.0 Urinary tract infection, site not specified; N12 Tubulo-interstitial nephritis, not specified as acute or chronic; F03.90 Unspecified dementia, unspecified severity, without behavioral disturbance, psychotic disturbance, mood disturbance, and anxiety; E11.9 Type 2 diabetes mellitus without complications; I34.0 Nonrheumatic mitral (valve) insufficiency; I10 Essential (primary) hypertension; N40.0 Benign prostatic hyperplasia without lower urinary tract symptoms; E66.9 Obesity, unspecified; Z68.31 Body mass index [BMI] 31.0-31.9, adult; I25.2 Old myocardial infarction; Z87.440 Personal history of urinary (tract) infections; Z99.81 Dependence on supplemental oxygen; Z87.891 Personal history of nicotine dependence; Z74.01 Bed confinement status; Z79.899 Other long term (current) drug therapy; Z79.82 Long term (current) use of aspirin; Z79.4 Long term (current) use of insulin
CPT/HCPCS: 36415; 36600; 71045; 80048; 80053; 80061; 81000-TC; 82803-TC; 82962; 83605; 83690-TC; 83735-TC; 83880; 84439; 84443-TC; 84484; 85025; 85610-TC; 85730-TC; 87040-TC; 87070-TC; 87081; 87086; 87205-TC; 93005; 93970; 94002; 94003; 94640; 96361; 96365; 96375; 99285; C1751; C9113; J0153; J0330; J0696; J1030; J1160; J1644; J1650; J1815; J1940; J1956; J2543; J2704; J2930; J3490; J7030; J7040; J7060; J7120; J7612; J7613; NO CODE; Q9964; Q9967

== ENCOUNTER 2017-10-24 20:02 | Inpatient (IN) | payer OTHER ==
[~2017-10-24] VITALS: Ht 185.4 cm; Wt 99.8 kg
[~2017-10-24 20:02] MED LIST changes: +ASPI-1155 PO; -ASPI81TA2 PO; +ATRMDI INH; +DOCU250C14 PO; +DULR10 RC; +FLO110 INH; +INSU100V11 SQ; +MOM PO; +SSNOVOLOG SUBCUT; +TRAM50TA92 PO
[2017-10-24 20:11] VITALS: BP_SYST 139
--- NOTE | 2017-10-24 20:16 | NUR ---
Placed in room 02 . Placed on monitoring specialist, blood pressure machine and pulse oximeter. To gown for exam. Side rails up.
--- NOTE | 2017-10-24 20:20 | NUR ---
PT SEEN IN BED 2, COMPLAINS OF PROGRESSIVELY WORSENING COUGH WITH PHLEGM FOR THE PAST 3 DAYS. CLAIMS HAD FEVER HIGH 100.4 TODAY AND HAD RECEIVED TYLENOL PRIOR TO ARRIVAL.
--- NOTE | 2017-10-24 20:22 | NUR ---
SONA Packer at bedside examining patient.
[2017-10-24] MEDS ORDERED: MONT10TA25 PO (20:29)
[2017-10-24] MEDS ORDERED: BUDE6HFA INH (20:29)
[2017-10-24] MEDS ORDERED: GLUXR500 PO (20:29)
[2017-10-24] MEDS ORDERED: IPRA4AER INH (20:29)
[2017-10-24] MEDS ORDERED: FAMO20TA8 PO (20:29)
[2017-10-24] MEDS ORDERED: AMIO200T2 PO (20:29)
[2017-10-24] MEDS ORDERED: DORZ10DR9 EACH EYE (20:29)
[2017-10-24] MEDS ORDERED: RIVA20TA PO (20:29)
[2017-10-24] MEDS ORDERED: METO25TA3 PO (20:29)
[2017-10-24] MEDS ORDERED: LEVA1.2527 NEB (20:29)
[2017-10-24] MEDS ORDERED: guaiFENesin ER 600 MG TAB PO ONE (20:30)
[2017-10-24] MEDS ORDERED: IPRATROPIUM/ALBUTEROL SULFATE 3 ML AMPUL.NEB INH ONE (20:30)
[2017-10-24] MEDS ORDERED: NS 1000 ML IV.SOLN IV ONE (20:30)
[2017-10-24 21:03] LABS: BASOPHILS # (AUTO) 0.1 K/uL (0.0-0.2); BASOPHILS % (AUTO) 0.7 % (0.0-2.0); EOSINOPHILS # (AUTO) 0.1 K/uL (0.0-0.4); EOSINOPHILS % (AUTO) 0.6 % (0.0-4.0); HEMATOCRIT 35.6 % (36-54); LYMPHOCYTES # (AUTO) 0.9 K/uL (1.0-5.5); LYMPHOCYTES % (AUTO) 8.3 % (20.5-51.5); MEAN CORPUSCULAR HEMOGLOBIN 29 pg (27-31); MEAN CORPUSCULAR HGB CONC 34 % (32-36); MEAN CORPUSCULAR VOLUME 86 fL (79.0-98.0); MONOCYTES # (AUTO) 0.8 K/uL (0.0-1.0); MONOCYTES % (AUTO) 7.9 % (1.7-9.3); NEUTROPHILS # (AUTO) 8.4 K/uL (1.8-7.7); NEUTROPHILS % (AUTO) 82.5 % (40.0-70.0); PLATELET COUNT (AUTO) 296 K/uL (130-430); RED BLOOD CELL COUNT(AUTO) 4.14 MIL/uL (4.2-6.2); RED CELL DISTRIBUTION WIDTH 13.1 % (9.0-15.0); WHITE BLOOD COUNT (AUTO) 10.3 K/uL (4.8-10.8)
[2017-10-24 21:10] LABS: ANION GAP 8 (5-15); CALCIUM 8.8 mg/dL (8.4-11.0); CHLORIDE 100 mmol/L (98-107); CREATININE 1.41 mg/dL (0.55-1.30); GLUCOSE 230 mg/dL (70-99); POTASSIUM 4.6 mmol/L (3.5-5.1); SODIUM SERUM 131 mmol/L (136-145); UREA NITROGEN, BLOOD 20 mg/dL (8-21)
[2017-10-24 21:14] LABS: ALANINE AMINOTRANSFERASE 16 U/L (12-78); ALBUMIN 3.1 g/dL (3.4-4.8); ASPARTATE AMINOTRANSFERASE 11 U/L (10-37); TOTAL BILIRUBIN 0.8 mg/dL (0.0-1.0)
--- NOTE | 2017-10-24 21:22 | NUR ---
Medication reconciliation completed with information provided by . Any prior medication reconciliation on file was reviewed and corrected.
[2017-10-24 21:40] LABS: BILIRUBIN,URINE NEGATIVE (NEGATIVE); BLOOD, URINE 3+ (NEGATIVE); CLARITY/URINE HAZY (CLEAR); COLOR,URINE YELLOW (YELLOW); GLUCOSE,URINE NEGATIVE (NEGATIVE); KETONES,URINE TRACE (NEGATIVE); LEUKOCYTE ESTERASE ,URINE 2+ (NEGATIVE); NITRITE, URINE POSITIVE (NEGATIVE); PH,URINE 6.5 (5.0-8.0); PROTEIN URINE 1+ (NEGATIVE); UROBILINOGEN,URINE 0.2 (0.2-1.0)
[2017-10-24 22:19] LABS: BACTERIA,URINE MODERATE /HPF (None Seen); MUCUS,URINE None Seen /LPF (None Seen); WBC,URINE 50-80 /HPF (0-3)
--- NOTE | 2017-10-24 22:29 | NUR ---
ADMISSION: The patient, LUIGI NEVAREZ, 82 y/o, M admitted by TRUONG MATHEWS MD, was given written information regarding hospital policies, unit procedures and contact persons.
--- NOTE | 2017-10-24 22:33 | NUR ---
Patient will be admitted to care of DR. MATHEWS. Admitted to TELEMTRY unit. Will go to room 112B. Belongings list completed. Summary report printed. Report given at bedside.
--- NOTE | 2017-10-24 22:35 | NUR ---
ROUNDS PATIENT IN BED, AWAKE, ALERT, ORIENTED, VITALS STABLE. DENIES ANY PAIN AND DISCOMFORT AT THIS TIME. ADMISSION ASSESSMENT DONE AND DOCUMENTED. SEE FLOWSHEET. PLAN OF CARE DISCUSSED AND PATIENT VERBALIZED UNDERSTANDING. NEEDS ATTENDED TO. SAFETY AND FALL PRECAUTION MEASURES MAINTAINED. CALL LIGHT PLACED WITHIN REACH.
[2017-10-24 22:43] VITALS: BP_SYST 130
[2017-10-24 23:37] VITALS: BP_SYST 130
[2017-10-24] MEDS ORDERED: MILK OF MAGNESIA 30 ML UDC PO PRN (23:45)
[2017-10-25] MEDS ORDERED: KCL 20 mEq in D5/0.45NS 1000mL 1,000 ML IV ONE
[2017-10-25] MEDS ORDERED: LevALBUTEROL HCL 1.25 MG/0.5 ML *CONC.* VIAL.NEB (XOPENEX CONC.) INH PRN
--- NOTE | 2017-10-25 00:14 | NUR ---
PATIENT RESTING: Patient resting quietly. No acute distress noted. Vital signs within normal range.
[2017-10-25] MEDS ORDERED: VANCOMYCIN HCL 1,500 MG in NS 500 ML IV SCH (01:00)
[2017-10-25] MEDS ORDERED: PIPERACILLIN/TAZOBACTAM 3.375 GM/VIAL (ZOSYN) IV ONE (01:25)
[2017-10-25 01:26] VITALS: BP_SYST 130
[2017-10-25] MEDS: PIPERACILLIN/TAZO 3.375/DEX-IS 50 ML IV SCH ×5 (01:42→23:37)
[2017-10-25] MEDS ORDERED: VANCOMYCIN HCL 1000 MG/VIAL IV ONE (02:41)
[2017-10-25] MEDS ORDERED: VANCOMYCIN HCL 500 MG/VIAL IV ONE (02:42)
--- NOTE | 2017-10-25 04:15 | NUR ---
PATIENT RESTING: Patient resting quietly. No acute distress noted. Vital signs within normal range.
[2017-10-25] MEDS: methylPREDNISolone SOD SUCC/PF 62.5 MG/ML VIAL IVP SCH ×3 (05:28→22:39)
--- NOTE | 2017-10-25 06:50 | NUR ---
CLOSING NOTES PATIENT AWAKE, VITALS STABLE, ACCU CHECK DONE WITH BLOOD SUGAR OF 145. NO INSULIN COVERAGE PER SLIDING SCALE. ALL NEEDS ATTENDED TO. CALL LIGHT PLACED WITHIN REACH.
--- NOTE | 2017-10-25 07:55 | NUR ---
AM rounds patient resting in bed, a/ox4, denies pain, on 2L NC, patient states he has oxygen at home but does not use it, O2 sat at 93% with 2L, instructed the patient to leave the O2 on for now, he verbalized understanding, assessment complete, IV line is patent and infusing well, no s/s of infiltration, educated the patient on plan of care and call light system and to call for any assistance, he verbalized understanding, bed in lowest position, three side rails up, bed alarm on, call light within reach, fall and aspiration precautions in place.
[2017-10-25 08:17] VITALS: BP_SYST 118
[2017-10-25] MEDS ORDERED: BUDESONIDE/FORMOTEROL 160-4.5 mCg, 6 GM INHALER INH SCH (09:00)
[2017-10-25] MEDS: IPRATROPIUM/ALBUTEROL SULFATE 3 ML AMPUL.NEB INH SCH ×2 (09:00→20:17)
[2017-10-25] MEDS ORDERED: AMIODARONE HCL 200 MG TABLET PO SCH (09:00)
[2017-10-25] MEDS: FAMOTIDINE 20 MG TABLET PO SCH ×2 (09:09→20:15)
[2017-10-25] MEDS: AMIODARONE HCL 200 MG TABLET PO SCH (09:10)
[2017-10-25] MEDS: METOPROLOL SUCCINATE 25 MG TAB.SR.24H (TOPROL XL) PO SCH ×2 (09:10→20:15)
[2017-10-25] MEDS: RIVAROXABAN 10 MG TABLET PO SCH (09:10)
--- NOTE | 2017-10-25 09:10 | NUR ---
Medications patient resting in bed, awake, denies pain, being assisted by AIRBRUSH ARTIST, educated the patient on medications uses and potential side effects, he verbalized understanding and tolerated well, no other needs at this time, bed in lowest position, three side rails up, bed alarm on, call light within reach, fall and aspiration precautions in place.
[2017-10-25] MEDS: cycloSPORINE 0.05%, 0.4 ML OPHTHALMIC EMULSION DROPERETTE OP SCH ×2 (09:11→20:16)
--- NOTE | 2017-10-25 09:56 | NUR ---
Nutrition Update Jp Scale 17 noted. Pt admitted for UTI, COPD. Diet: [facility] BMI: 29.2 kg/m2 RD to follow per nutrition care standards.
[2017-10-25] MEDS: INSULIN REGULAR, HUMAN 100 UNITS/ML, 10 ML VIAL (novoLIN R) SUBCUT PRN ×3 (10:55→20:36)
--- NOTE | 2017-10-25 11:00 | NUR ---
Blood glucose/antibiotic patient resting in bed, his is at bedside, patient denies pain, blood glucose checked and insulin coverage provided per MD orders, patient questioning why his blood sugar is so high, informed that he is taking steroids to help his breathing/lungs and a side effect can be increased blood sugars, he verbalized understanding, IV antibiotic hung and infusing well, IV line is patent, no other needs at this time, bed in lowest position, three side rails up, bed alarm on, call light within reach, fall and aspiration precautions in place.
[2017-10-25 12:30] VITALS: BP_SYST 114
--- NOTE | 2017-10-25 13:52 | NUR ---
RN rounds patient resting in bed, awake, denies pain, breathing is even and unlabored, no signs of distress, educated the patient on medication uses and potential side effects, he verbalized understanding, IV line is patent and infusing well, continuing to monitor, bed in lowest position, three side rails up, bed alarm on, call light within reach, fall and aspiration precautions in place.
--- NOTE | 2017-10-25 14:25 | NUR ---
Transfer of Care to Keyla RN, patient in stable condition.
--- NOTE | 2017-10-25 14:25 | NUR ---
ASSUMED CARE OF PATIENT AT THIS TIME.
[2017-10-25] MEDS: LevALBUTEROL HCL 1.25 MG/0.5 ML *CONC.* VIAL.NEB (XOPENEX CONC.) INH SCH ×2 (15:21→23:37)
[2017-10-25 15:22] VITALS: BP_SYST 135
--- NOTE | 2017-10-25 15:22 | NUR ---
Dietitian Recommendations * [facility] per LP, RD Please refer to Nutrition Assessment for details.
--- NOTE | 2017-10-25 15:28 | NUR ---
BATHROOM PATIENT ESCORTED TO BATHROOM. PATIENT AMBULATED WITH WALKER AND ASSISTANCE FROM RN. BOWEL MOVEMENT REPORTED.
--- NOTE | 2017-10-25 16:20 | NUR ---
Dr Hoffman rounds States he will prescribe mucinex for patient's congestion and physical therapy to see patient on Friday. ordered for patient to be transferred to [facility].
--- NOTE | 2017-10-25 17:05 | NUR ---
Blood Glucose 339. 8 units of administered, per sliding scale.
[2017-10-25] MEDS: MONTELUKAST 10 MG TABLET PO SCH (17:07)
--- NOTE | 2017-10-25 18:11 | NUR ---
Closing Note Patient a/ox3, at bedside. No complaints of pain or difficulty breathing on room air. All needs met throughout shift. Will endorse plan of care to noc shift. Safety precautions in order, call light in reach and bed alarm on.
--- NOTE | 2017-10-25 19:30 | NUR ---
ROUNDS PATIENT RESTING COMFORTABLY IN BED, NOT IN DISTRESS, VITALS STABLE. DENIES ANY PAIN AND DISCOMFORT AT THIS TIME. ASSESSMENT DONE AND DOCUMENTED. SEE FLOWSHEET. NEEDS ATTENDED TO. SAFETY AND FALL PRECAUTION MEASURES IN PLACED. BED IN LOW AND LOCKED POSITION. BED ALARM ON. CALL LIGHT PLACED WITHIN REACH.
[2017-10-25 20:00] VITALS: BP_SYST 122
[2017-10-25] MEDS: guaiFENesin ER 600 MG TAB PO SCH (20:14)
[2017-10-25] MEDS: VANCOMYCIN HCL 1,750 MG in NS 500 ML IV SCH (20:14)
--- NOTE | 2017-10-25 21:13 | NUR ---
MEDICATION DUE MEDICATIONS GIVEN ORDERED, TOLERATED WELL. WILL CONTINUE TO MONITOR.
--- NOTE | 2017-10-26 00:10 | NUR ---
ROUNDS PATIENT ASLEEP AT THIS TIME, NO SIGNS OF ANY PAIN AND DISCOMFORT NOTED AT THIS TIME. WILL CONTINUE TO MONITOR.
[2017-10-26 00:34] VITALS: BP_SYST 116
--- NOTE | 2017-10-26 04:05 | NUR ---
PATIENT RESTING: Patient resting quietly. No acute distress noted. Vital signs within normal range.
[2017-10-26] MEDS: PIPERACILLIN/TAZO 3.375/DEX-IS 50 ML IV SCH ×3 (05:33→18:16)
[2017-10-26] MEDS: methylPREDNISolone SOD SUCC/PF 62.5 MG/ML VIAL IVP SCH (05:39)
[2017-10-26] MEDS: INSULIN REGULAR, HUMAN 100 UNITS/ML, 10 ML VIAL (novoLIN R) SUBCUT PRN ×4 (06:18→20:35)
--- NOTE | 2017-10-26 06:34 | NUR ---
CLOSING NOTES PATIENT AWAKE, VITALS STABLE, DENIES ANY PAIN AND DISCOMFORT AT THIS TIME. ACCU CHECK DONE WITH BLOOD SUGAR OF 253. REGULAR INSULIN 6 UNITS GIVEN SUBCU PER SLIDING SCALE. ALL NEEDS ATTENDED TO. SAFETY MEASURES MAINTAINED. CALL LIGHT PLACED WITHIN REACH.
[2017-10-26 06:46] LABS: ANION GAP 3 (5-15); CALCIUM 8.9 mg/dL (8.4-11.0); CHLORIDE 105 mmol/L (98-107); CREATININE 1.16 mg/dL (0.55-1.30); GLUCOSE 280 mg/dL (70-99); POTASSIUM 4.9 mmol/L (3.5-5.1); SODIUM SERUM 134 mmol/L (136-145); UREA NITROGEN, BLOOD 14 mg/dL (8-21)
[2017-10-26] MEDS: IPRATROPIUM/ALBUTEROL SULFATE 3 ML AMPUL.NEB INH SCH ×2 (07:00→19:43)
[2017-10-26 07:16] LABS: BASOPHILS % (AUTO) 0.2 % (0.0-2.0); EOSINOPHILS % (AUTO) 0.1 % (0.0-4.0); HEMATOCRIT 34.3 % (36-54); HEMOGLOBIN 11.7 g/dL (14.0-18.0); LYMPHOCYTES # (AUTO) 0.4 K/uL (1.0-5.5); MEAN CORPUSCULAR HEMOGLOBIN 30 pg (27-31); MEAN CORPUSCULAR HGB CONC 34 % (32-36); MONOCYTES # (AUTO) 0.1 K/uL (0.0-1.0); MONOCYTES % (AUTO) 0.7 % (1.7-9.3); NEUTROPHILS # (AUTO) 9.3 K/uL (1.8-7.7); PLATELET COUNT (AUTO) 260 K/uL (130-430); WHITE BLOOD COUNT (AUTO) 9.8 K/uL (4.8-10.8)
[2017-10-26 07:19] LABS: MEAN CORPUSCULAR VOLUME 88 fL (79.0-98.0)
[2017-10-26] MEDS: LevALBUTEROL HCL 1.25 MG/0.5 ML *CONC.* VIAL.NEB (XOPENEX CONC.) INH SCH ×3 (07:43→23:15)
--- NOTE | 2017-10-26 07:45 | NUR ---
Rounding Pt resting in bed sith no s/s of SOB or distress, some confusion about where he is but AAOx 3, Reviewed care plan for the day and safety as well as call light system. IV and nasal canula checked. Bed left in low locked position with call light within reach and bed alarm on
[2017-10-26 07:55] VITALS: BP_SYST 109
[2017-10-26] MEDS: RIVAROXABAN 10 MG TABLET PO SCH (08:33)
[2017-10-26] MEDS: guaiFENesin ER 600 MG TAB PO SCH ×2 (08:33→20:29)
[2017-10-26] MEDS: FAMOTIDINE 20 MG TABLET PO SCH ×2 (08:34→20:29)
[2017-10-26] MEDS: METOPROLOL SUCCINATE 25 MG TAB.SR.24H (TOPROL XL) PO SCH ×2 (08:35→20:30)
[2017-10-26] MEDS: AMIODARONE HCL 200 MG TABLET PO SCH (08:35)
[2017-10-26] MEDS: cycloSPORINE 0.05%, 0.4 ML OPHTHALMIC EMULSION DROPERETTE OP SCH ×2 (09:00→20:33)
--- NOTE | 2017-10-26 10:05 | NUR ---
Rounding Pt resting, no s/s of SOB, family at bedside, no c/o pain or discomfort. Bed in low locked position with bed alarm on and call light within reach.
--- NOTE | 2017-10-26 11:53 | NUR ---
Rounding/elevated blood sugar Pt AOx4 w/ no s/s of SOB or distress, no c/o pain or discomfort. Blood glucose was elevated at 378 with converage of 10 units provided. Family at bedside and visiting with patient. Bed in low locked position with call light within reach.
--- NOTE | 2017-10-26 12:35 | NUR ---
MRSA nares Received call from lab Pt positive for MRSA nares. Will inform charge nurse, staff and physician.
[2017-10-26 12:45] VITALS: BP_SYST 117
--- NOTE | 2017-10-26 13:05 | NUR ---
Pharmacy contact called pharmacy about restasis eye drops, unable to locate on the unit, pharmacy reports none available
--- NOTE | 2017-10-26 14:00 | NUR ---
Rounding pt resting in bed with eyes closed, family remains at bedside, no s/s of SOB or distress, no grimacing or indication of pain.
--- NOTE | 2017-10-26 15:49 | NUR ---
Rounding Pt with family at bedside, no s/s of SOB or distress, jaya received breathing treatment. Reviewed safety and call light, call light left within reach and bed alarm on. Pt and family agree to call for assistance as needed.
[2017-10-26 16:45] VITALS: BP_SYST 120
--- NOTE | 2017-10-26 17:52 | NUR ---
Rounding pt resting in bed watching tv, no s/s of SOB or distress. Bed in low locked position with call alarm within reach.
[2017-10-26] MEDS: MONTELUKAST 10 MG TABLET PO SCH (18:16)
[2017-10-26] MEDS: PREDNISONE 20 MG TABLET PO SCH (18:16)
--- NOTE | 2017-10-26 18:47 | NUR ---
Closing note Pt sitting in bed, no s/s ofSOB or distress, cough noted, nonproductive. No c/o pain or discomfort. Family at bedside and pt visiting with them. Pt and family anticipating discharge tomorrow per conversation with Dr Hoffman at rounds. Physician has moved pt to oral steroids to transition him as part of discharge. Wound care completed today.Will give report and endorse care to NOC shift nurse including ACHS checks, wound update and care update.
--- NOTE | 2017-10-26 19:10 | NUR ---
OPENING NOTES Late entry due to patient care. Bedside report received from day shift nurse. Patient received lying in bed, watching TV, AOx4. No s/s of acute distress. Patient denies any pain or discomfort. Breathing is even and unlabored. Skin is warm and dry to touch, no s/s of hypoglycemia. Kern attached, secured and draining by gravity. IV site patent, shows no signs of infection or infiltration. Call light with patient, instructed to call for any assistance, patient verbalized understanding. Bed alarm is on. Bed is locked and at lowest position. Will continue to monitor.
[2017-10-26 20:00] VITALS: BP_SYST 128
[2017-10-26] MEDS: VANCOMYCIN HCL 1,750 MG in NS 500 ML IV SCH (20:31)
[2017-10-26] MEDS: MUPIROCIN NASAL 2% OINT. NS SCH (20:32)
--- NOTE | 2017-10-26 21:00 | NUR ---
ROUNDS Patient in bed resting at this time. No signs of discomfort noted. Chest rise and fall even bilaterally. Call light with patient. Bed alarm on. Will continue to monitor.
--- NOTE | 2017-10-26 23:00 | NUR ---
ROUNDS Patient in bed sleeping comfortably at this time. No signs of discomfort noted. Chest rise and fall even bilaterally. Kern attached, secured and draining by gravity. Call light within reach. Bed alarm on. Will continue to monitor.
[2017-10-27] MEDS: PIPERACILLIN/TAZO 3.375/DEX-IS 50 ML IV SCH ×4 (00:03→17:32)
[2017-10-27 00:30] VITALS: BP_SYST 125
--- NOTE | 2017-10-27 01:00 | NUR ---
ROUNDS Patient sleeping comfortably. No s/s of acute distress. Breathing even and unlabored. HOB raised. Call light with patient. Bed alarm on. Will continue to monitor.
--- NOTE | 2017-10-27 03:00 | NUR ---
ROUNDS Patient in bed sleeping at this time. No signs of discomfort noted. Chest rise and fall even bilaterally. Call light with patient. Bed alarm on. Will continue to monitor.
[2017-10-27] MEDS: INSULIN REGULAR, HUMAN 100 UNITS/ML, 10 ML VIAL (novoLIN R) SUBCUT PRN ×3 (06:09→17:26)
--- NOTE | 2017-10-27 06:31 | NUR ---
CLOSING NOTES Patient in bed resting at this time, appears to be sleeping, both eyes are closed. No s/s of acute distress noted. Breathing is even and unlabored. IV antibiotics infusing at this time, IV site is patent, no signs of infection or infiltration. Patient was turned every two hours throughout shift. Wound dressing intact, clean and dry, no drainage, no active bleeding noted. Skin is warm and dry to touch, no s/s of hypoglycemia. All of patient's needs met throughout shift. Fall, safety, and isolation precautions maintained throughout shift. Will continue to monitor until patient care is endorsed to [facility] day shift nurse. Addendum: 10/27/17 at 0654 by Dustin Portillo RN ADDITIONAL Kern attached, secured and draining by gravity.
[2017-10-27] MEDS: IPRATROPIUM/ALBUTEROL SULFATE 3 ML AMPUL.NEB INH SCH (07:00)
[2017-10-27] MEDS: LevALBUTEROL HCL 1.25 MG/0.5 ML *CONC.* VIAL.NEB (XOPENEX CONC.) INH SCH ×2 (07:40→15:23)
[2017-10-27 08:00] VITALS: BP_SYST 126
--- NOTE | 2017-10-27 08:00 | NUR ---
Opening Note received report from material handler 2nd shift RN, pt resting in bed, A&Ox4, respirations even and unlabored on room air, pt denies any pain or shortness of breath, no acute distress noted, IV site clean, dry, and intact, paulino catheter draining to gravity, pt educated on use of call light and asked to call for assistance, pt verbalized understanding, call light in reach, bed in low position, bed alarm on, fall, aspiration, and isolation precautions in place.
[2017-10-27] MEDS: METOPROLOL SUCCINATE 25 MG TAB.SR.24H (TOPROL XL) PO SCH (08:03)
[2017-10-27] MEDS: MUPIROCIN NASAL 2% OINT. NS SCH (08:03)
[2017-10-27] MEDS: RIVAROXABAN 10 MG TABLET PO SCH (08:04)
[2017-10-27] MEDS: FAMOTIDINE 20 MG TABLET PO SCH (08:05)
[2017-10-27] MEDS: guaiFENesin ER 600 MG TAB PO SCH (08:05)
[2017-10-27] MEDS: PREDNISONE 20 MG TABLET PO SCH ×2 (08:06→17:32)
[2017-10-27] MEDS: AMIODARONE HCL 200 MG TABLET PO SCH (08:06)
--- NOTE | 2017-10-27 08:10 | NUR ---
Medication pt educated on medication use and side effects, pt verbalized understanding, tolerated medication administration well, no additional needs at this time, fall and aspiration precautions in place. Addendum: 10/27/17 at 0946 by Shania Prado RN add: isolation precautions in place.
--- NOTE | 2017-10-27 08:45 | NUR ---
Called Pharmacy called pharmacy regarding pt medication restasis eye drops not being available, per pharmacy they will bring medication to floor.
--- NOTE | 2017-10-27 08:50 | NUR ---
Bathroom pt ambulated to bathroom with walker and minimal assistance, steady gait noted, BM x1, voided x1, pt ambulated back to bed, fall and aspiration precautions in place. Addendum: 10/27/17 at 0948 by Shania Prado RN add: isolation precautions in place. Addendum: 10/27/17 at 1312 by Shania Prado RN remove: pt voided x1
[2017-10-27] MEDS ORDERED: MUPIROCIN 2% TOPICAL OINTMENT 22 GM NS SCH (10:00)
--- NOTE | 2017-10-27 10:30 | NUR ---
Called Pharmacy/RN Rounds called pharmacy regarding pt medication restasis eye drops, per pharmacy they will bring medication to floor, will give as soon as available, pt resting in bed, at bedside, respirations even and unlabored, pt denies any shortness of breath or difficulty breathing, denies any pain at this time, fall, aspiration, and isolation precautions in place.
[2017-10-27] MEDS: cycloSPORINE 0.05%, 0.4 ML OPHTHALMIC EMULSION DROPERETTE OP SCH (10:46)
--- NOTE | 2017-10-27 10:49 | NUR ---
Medication pt and educated on medication use and side effects, pt and verbalized understanding, tolerated medication administration well, no additional needs at this time, fall and aspiration precautions in place.
--- NOTE | 2017-10-27 11:38 | NUR ---
Medication pt educated on medication use and side effects, pt verbalized understanding, tolerated medication administration well, no additional needs at this time, fall and aspiration precautions in place.
--- NOTE | 2017-10-27 12:20 | NUR ---
Medication pt and educated on medication use and side effects, pt and verbalized understanding, tolerating medication administration well, no redness or swelling noted at IV site, fall, aspiration, and isolation precautions in place.
[2017-10-27 13:53] VITALS: BP_SYST 108
--- NOTE | 2017-10-27 14:00 | NUR ---
RN Rounds pt resting in bed, respirations even and unlabored on room air, pt denies any pain or shortness of breath, no acute distress noted, fall, aspiration, and isolation precautions in place.
--- NOTE | 2017-10-27 16:45 | NUR ---
Wound Care pt educated on procedure, wound care completed, cleansed area with NS, applied moisture barrier cream, foam dressing in place, pt tolerated well, fall, aspiration, and isolation precautions in place.
[2017-10-27 16:56] VITALS: BP_SYST 129
[2017-10-27] MEDS: MONTELUKAST 10 MG TABLET PO SCH (17:32)
[2017-10-27 18:03] VITALS: BP_SYST 129
[2017-10-27] MEDS ORDERED: BACL20 PO (18:09)
[2017-10-27] MEDS ORDERED: HUMIBID PO (18:13)
--- NOTE | 2017-10-27 18:35 | NUR ---
Discharge orders to discharge pt home with paulino catheter in place, pt stable for discharge, no acute distress noted, pt denies any pain or shortness of breath, pt provided discharge packet and instructions, written prescription for humibid and septra given, pt and pt verbalized understanding, IV catheter removed, catheter intact, no bleeding, hospital ID band removed, all belongings sent with pt, paulino catheter in place, pt and informed to follow up with Dr. Hoffman, pt and pt verbalized understanding, pt taken to parking lot via wheelchair.
== END 2017-10-27 18:35 | disposition home or self-care (01) | DRG 682 ==
LOC: SED 20:02 → STU 22:04 → SMU 10-25 16:16
PROVIDERS: ADMIT Family Medicine; ATTEND Family Medicine
DX: N17.9 Acute kidney failure, unspecified (principal); J18.9 Pneumonia, unspecified organism; J44.0 Chronic obstructive pulmonary disease with (acute) lower respiratory infection; N39.0 Urinary tract infection, site not specified; J44.1 Chronic obstructive pulmonary disease with (acute) exacerbation; E11.9 Type 2 diabetes mellitus without complications; I10 Essential (primary) hypertension; D64.9 Anemia, unspecified; M19.90 Unspecified osteoarthritis, unspecified site; N40.0 Benign prostatic hyperplasia without lower urinary tract symptoms; Z87.891 Personal history of nicotine dependence; Z79.01 Long term (current) use of anticoagulants; Z79.899 Other long term (current) drug therapy; Z91.018 Allergy to other foods
CPT/HCPCS: 36415; 71045; 80048; 80053; 81000-TC; 82962; 83605; 85025; 87040-TC; 87081; 87086; 93005; 94640; 94760; 96361; 96365; 99285; J1815; J1956; J2543; J2930; J3370; J7030; J7040; J7050; J7060; J7512; J7612; J7620

== ENCOUNTER 2018-05-23 18:52 | Inpatient (IN) | payer OTHER ==
[~2018-05-23] VITALS: Ht 185.4 cm; Wt 108.9 kg
[~2018-05-23 18:52] MED LIST changes: -ALBU2.5V7 INH; +AMIO200T4 PO; -ASPI-1155 PO; +BACL20 PO; -BRIN10DR EACH EYE; +BUDE6HFA INH; -CELE200C PO; -DOCU250C14 PO; +DORZ10DR9 EACH EYE; -DULR10 RC; +FAMO20TA8 PO; -FLO110 INH; -GLU850 PO; +GLUXR500 PO; +HUMIBID PO; -INSU100V11 SQ; +IPRA4AER INH; +LEVA1.2527 NEB; +METO25TA3 PO; -MOM PO; -MONT10TA22 PO; +MONT10TA25 PO; -OMEG1CAP55 PO; +RIVA20TA PO; -SSNOVOLOG SUBCUT; -TRAM50TA92 PO; -TRELEGY IH
[2018-05-23 19:13] VITALS: BP_SYST 149
--- NOTE | 2018-05-23 19:28 | NUR ---
1927 - Pt bib wheelchair from triage. Per pt's , pt developed fever this afternoon. Pt has hx of frequent PNA. States he was on a ventilator last year for resp failure. States hx of COPD. Pt states he always has a cough, but states that he thinks it has gotten worse this morning. Pt is A&OX4. Resp even, shallow, mild tachypnea. O2 sat 89-90% on room air, does not wear O2 at home. Labs drawn, blood cultures x 2 drawn. Awaiting MD [place]. Will continue to monitor.
--- NOTE | 2018-05-23 19:28 | NUR ---
Pt placed to ER bed 01, to gown, to color television console monitor, pt report given to ANT Rothman.
--- NOTE | 2018-05-23 19:50 | NUR ---
1950 - ER at bedside examining patient.
[2018-05-23 20:05] LABS: HEMATOCRIT 44.9 % (36-54); HEMOGLOBIN 14.8 g/dL (14.0-18.0); MEAN CORPUSCULAR VOLUME 91 fL (79.0-98.0); RED BLOOD CELL COUNT(AUTO) 4.96 MIL/uL (4.2-6.2); WHITE BLOOD COUNT (AUTO) 14.5 K/uL (4.8-10.8)
[2018-05-23 20:06] LABS: BASOPHILS # (AUTO) 0.1 K/uL (0.0-0.2); BASOPHILS % (AUTO) 0.4 % (0.0-2.0); EOSINOPHILS # (AUTO) 0.1 K/uL (0.0-0.4); EOSINOPHILS % (AUTO) 0.6 % (0.0-4.0); LYMPHOCYTES # (AUTO) 0.6 K/uL (1.0-5.5); LYMPHOCYTES % (AUTO) 4.2 % (20.5-51.5); MEAN CORPUSCULAR HEMOGLOBIN 30 pg (27-31); MEAN CORPUSCULAR HGB CONC 33 % (32-36); MONOCYTES # (AUTO) 0.6 K/uL (0.0-1.0); MONOCYTES % (AUTO) 3.8 % (1.7-9.3); NEUTROPHILS # (AUTO) 13.2 K/uL (1.8-7.7); PLATELET COUNT (AUTO) 239 K/uL (130-430); RED CELL DISTRIBUTION WIDTH 15.6 % (9.0-15.0)
[2018-05-23] MEDS ORDERED: IPRATROPIUM/ALBUTEROL SULFATE 3 ML AMPUL.NEB (DUONEB) INH ONE (20:15)
[2018-05-23] MEDS ORDERED: ACETAMINOPHEN 500 MG TABLET PO ONE (20:15)
[2018-05-23 20:20] LABS: INR 0.9 (0.80-1.20); PROTHROMBIN TIME 9.7 SECS (9.5-12.5)
[2018-05-23] MEDS ORDERED: NS 500 ML IV ONE (20:30)
[2018-05-23] MEDS ORDERED: LEVOFLOXACIN 500 MG/D5W 100 ML IV ONE (20:30)
[2018-05-23 20:45] LABS: ANION GAP 11 (5-15); CALCIUM 8.9 mg/dL (8.4-11.0); CHLORIDE 102 mmol/L (98-107); CREATININE 0.99 mg/dL (0.55-1.30); GLUCOSE 216 mg/dL (70-99); POTASSIUM 3.8 mmol/L (3.5-5.1); SODIUM SERUM 137 mmol/L (136-145); UREA NITROGEN, BLOOD 16 mg/dL (8-21)
[2018-05-23 20:51] LABS: ALANINE AMINOTRANSFERASE 15 U/L (12-78); ALBUMIN 3.1 g/dL (3.4-4.8); ASPARTATE AMINOTRANSFERASE 14 U/L (10-37); TOTAL BILIRUBIN 0.6 mg/dL (0.0-1.0)
[2018-05-23] MEDS ORDERED: LOSA100T3 PO (21:00)
[2018-05-23] MEDS ORDERED: methylPREDNISolone SOD SUCC/PF 62.5 MG/ML VIAL IVP ONE (21:00)
[2018-05-23] MEDS ORDERED: NACL 0.9% 1,000 ML IV ONE (21:00)
[2018-05-23] MEDS ORDERED: SAW500CA12 PO (21:08)
[2018-05-23] MEDS ORDERED: VITD2000 PO (21:08)
[2018-05-23] MEDS ORDERED: GUAI600T86 PO (21:08)
[2018-05-23] MEDS ORDERED: AZOEYE OP (21:08)
[2018-05-23] MEDS ORDERED: RESEYE OP (21:08)
[2018-05-23] MEDS ORDERED: ALPHAGAN1 OP (21:08)
--- NOTE | 2018-05-23 21:30 | NUR ---
2129 - Pt improved, states he feels better. Vss, O2 improved after breathing tx, and 2L/nc.
--- NOTE | 2018-05-23 23:00 | NUR ---
2300 - Pt's O2 sat on room air remains at 89-90%. Pt to be admitted. Vss. Resp even and unlabored, no distress.
[2018-05-23] MEDS ORDERED: NACL 0.9% 1,600 ML IV ONE (23:15)
[2018-05-23 23:25] LABS: BILIRUBIN,URINE NEGATIVE (NEGATIVE); BLOOD, URINE NEGATIVE (NEGATIVE); CLARITY/URINE CLEAR (CLEAR); COLOR,URINE YELLOW (YELLOW); GLUCOSE,URINE TRACE (NEGATIVE); KETONES,URINE NEGATIVE (NEGATIVE); LEUKOCYTE ESTERASE ,URINE NEGATIVE (NEGATIVE); NITRITE, URINE NEGATIVE (NEGATIVE); PH,URINE 6.5 (5.0-8.0); PROTEIN URINE NEGATIVE (NEGATIVE); UROBILINOGEN,URINE 0.2 (0.2-1.0)
--- NOTE | 2018-05-23 23:57 | NUR ---
ADMIT NOTE Received pt from ER to the floor with a diagnosis of copd exacerbation. Admission process initiated. patient oriented to pain management, safety and call light-teach back done.
[2018-05-24 00:10] VITALS: BP_SYST 135
--- NOTE | 2018-05-24 00:36 | NUR ---
CONSULT REASON FOR CONSULT: COPD EXACERBATION PERSON I SPOKE WITH: NICKY CONSULTING PHYSICIAN: DR. MCWILLIAMS STOCK PARTS INSPECTOR PHONE NUMBER: [phone] ORDERING PHYSICIAN: DR. CALIX
--- NOTE | 2018-05-24 01:00 | NUR ---
ROUNDS Patient in bed at this time, eyes closed, appears to be asleep. No s/s of acute distress noted. Breathing even and unlabored. IVF infusing well. HOB raised, nasal canula attached properly. Call light with patient. Bed alarm on. Will continue to monitor.
[2018-05-24] MEDS ORDERED: IPRATROPIUM/ALBUTEROL SULFATE 3 ML AMPUL.NEB (DUONEB) INH ONE (03:00)
--- NOTE | 2018-05-24 03:00 | NUR ---
ROUNDS Patient in bed asleep. No signs of discomfort noted. Chest rise and fall even bilaterally. Call light with patient. Bed alarm on. Will continue to monitor.
[2018-05-24] MEDS: IPRATROPIUM/ALBUTEROL SULFATE 3 ML AMPUL.NEB (DUONEB) INH SCH ×6 (03:31→23:16)
[2018-05-24 03:33] VITALS: BP_SYST 135
--- NOTE | 2018-05-24 05:00 | NUR ---
ROUNDS Patient in bed sleeping at this time. No signs of discomfort noted. HOB raised, nasal canula attached properly, on 2L of oxygen. Chest rise and fall even bilaterally. IVF infusing well. Call light with patient. Bed alarm on. Will continue to monitor.
[2018-05-24] MEDS: INSULIN REGULAR, HUMAN 100 UNITS/ML, 10 ML VIAL (novoLIN R) SUBCUT PRN ×4 (06:16→21:37)
--- NOTE | 2018-05-24 06:34 | NUR ---
CLOSING NOTES Patient in bed awake at this time. No s/s of acute distress noted. Breathing even and unlabored. HOB raised, nasal canula attached properly, on 2L of oxygen. Patient denies any pain or discomfort at this time. IVF infusing well, IV site patent, no signs of infiltration or infection noted. All needs met throughout shift. Fall and safety precautions maintained throughout shift. Will continue to monitor until patient care is endorsed to oncoming dayshift nurse.
--- NOTE | 2018-05-24 07:37 | NUR ---
Opening Note: Patient in bed asleep. Patient shows no signs of pain or discomfort. Breathing is even and unlabored on 2L nasal cannula with no distress noted. IV patent and intact with one time NS running, no signs of infiltration. Safety precautions in place; bed in lowest position, wheels locked, side rails x3, bed alarm activated and call light within reach. NO needs at this time. Will continue to monitor.
[2018-05-24 08:13] VITALS: BP_SYST 149
[2018-05-24] MEDS ORDERED: SAW PALMETTO PO SCH (09:00)
[2018-05-24] MEDS: CHOLECALCIFEROL (VITAMIN D3) 2,000 UNIT TABLET PO SCH (09:26)
[2018-05-24] MEDS: methylPREDNISolone SOD SUCC 40 MG/ML VIAL IVP SCH ×2 (09:26→21:29)
[2018-05-24] MEDS: metFORMIN HCL 500 MG TABLET PO SCH ×2 (09:26→17:16)
[2018-05-24] MEDS: guaiFENesin ER 600 MG TAB PO SCH ×2 (09:27→21:28)
[2018-05-24] MEDS: AMIODARONE HCL 200 MG TABLET PO SCH (09:28)
[2018-05-24] MEDS: LOSARTAN POTASSIUM 50 MG TABLET (COZAAR) PO SCH (09:28)
--- NOTE | 2018-05-24 09:30 | NUR ---
Called pharmacy (Eyedrops): Called pharmacy regarding eyedrops, per Kristy, "I'll fill them up".
--- NOTE | 2018-05-24 10:31 | NUR ---
Called pharmacy x2: Called pharmacy and spoke to Kristy regarding eyedrops. Per Kristy, "I'll drop them off".
[2018-05-24] MEDS: cycloSPORINE 0.05%, 0.4 ML OPHTHALMIC EMULSION DROPERETTE OP SCH ×2 (10:41→21:27)
[2018-05-24] MEDS: DORZOLAMIDE 2% OPHTHALMIC SOLN 5ML OP SCH ×3 (10:41→21:26)
[2018-05-24 11:22] VITALS: BP_SYST 124
--- NOTE | 2018-05-24 11:22 | NUR ---
Accucheck: Blood sugar 317, covered with 8 units Novolin R per sliding scale. See eMAR.
--- NOTE | 2018-05-24 12:20 | NUR ---
Rounds: Patient in bed resting. Patient denies pain and discomfort. No SOB or respiratory distress noted. Morning medications tolerated well. Safety precautions in place and call light within reach. No needs at this time. Will continue to monitor.
[2018-05-24] MEDS ORDERED: ENOXAPARIN SODIUM 40 MG/0.4 ML SYRINGE SUBCUT ONE (12:45)
[2018-05-24] MEDS: cefTRIAXone 1 GM in D5W 50 ML IV SCH (13:05)
[2018-05-24] MEDS ORDERED: AZITHROMYCIN 500 MG in NS 250 ML IV SCH (13:30)
--- NOTE | 2018-05-24 14:07 | NUR ---
Rounds: Patient in bed resting, at bedside. No distress noted. Will continue to monitor.
[2018-05-24 15:29] VITALS: BP_SYST 130
--- NOTE | 2018-05-24 16:20 | NUR ---
Rounds: Patient in bed resting. Patient denies pain and discomfort. No SOB or respiratory distress noted. Safety precautions in place and call light within reach. No needs at this time. Will continue to monitor.
[2018-05-24] MEDS: MONTELUKAST 10 MG TABLET PO SCH (17:16)
--- NOTE | 2018-05-24 17:18 | NUR ---
Accucheck: Blood sugar 266, covered with 6 units Novolin R per sliding scale. See eMAR.
--- NOTE | 2018-05-24 18:51 | NUR ---
Closing Note: Patient in bed resting. Patient shows no signs of pain or discomfort. Breathing is even and unlabored on 2L nasal cannula with no distress noted. IV patent and intact, no signs of infiltration. Safety precautions in place; bed in lowest position, wheels locked, side rails x3, bed alarm activated and call light within reach. All needs met. Will endorse plan of care to NOC, nurse.
--- NOTE | 2018-05-24 19:36 | NUR ---
ROUNDS PATIENT IN BED, VITALS STABLE, NO PAIN AND DISCOMFORT NOTED AT THIS TIME. ASSESSMENT DONE AND DOCUMENTED. SEE FLOWSHEET. NEEDS ATTENDED TO. SAFETY AND FALL PRECAUTION MEASURES IN PLACED. BED IN LOW AND LOCKED POSITION. BED ALARM ON. CALL LIGHT PLACED WITHIN REACH.
--- NOTE | 2018-05-24 21:15 | NUR ---
MEDICATION DUE MEDICATIONS GIVEN SCHEDULED, TOLERATED WELL. WILL CONTINUE TO MONITOR.
[2018-05-24] MEDS: ZOLPIDEM TARTRATE 5 MG TABLET PO PRN (21:28)
--- NOTE | 2018-05-25 00:12 | NUR ---
PATIENT RESTING: Patient resting quietly. No acute distress noted. Vital signs within normal range.
[2018-05-25 00:36] VITALS: BP_SYST 105
--- NOTE | 2018-05-25 02:13 | NUR ---
ROUNDS PATIENT ASLEEP, VITALS STABLE, NO SOB NOR PAIN AND DISCOMFORT NOTED. WILL CONTINUE TO MONITOR.
[2018-05-25] MEDS: IPRATROPIUM/ALBUTEROL SULFATE 3 ML AMPUL.NEB (DUONEB) INH SCH ×6 (03:00→23:45)
--- NOTE | 2018-05-25 04:12 | NUR ---
PATIENT RESTING: Patient resting quietly. No acute distress noted. Vital signs within normal range.
[2018-05-25] MEDS: INSULIN REGULAR, HUMAN 100 UNITS/ML, 10 ML VIAL (novoLIN R) SUBCUT PRN ×4 (05:51→20:52)
--- NOTE | 2018-05-25 06:08 | NUR ---
CLOSING NOTES PATIENT AWAKE, ACCU CHECK DONE WITH BLOOD SUGAR OF 227. REGULAR INSULIN 4 UNITS SUBCU GIVEN PER SLIDING SCALE. ALL NEEDS ATTENDED TO. SAFETY AND FALL MEASURES MAINTAINED. CALL LIGHT PLACED WITHIN REACH.
--- NOTE | 2018-05-25 06:51 | NUR ---
Nutrition Update Jp Scale 18 noted. Pt admitted for COPD exacerbation Diet: Mechanical soft CCHO diet BMI: 31.7 kg/m2 RD to follow per nutrition care standards.
--- NOTE | 2018-05-25 07:09 | NUR ---
Opening Note: Patient in bed asleep. Patient shows no signs of pain or discomfort. Breathing is even and unlabored with no distress noted. IV patent and intact. Safety precautions in place; bed in lowest position, wheels locked, side rails x3, bed alarm activated and call light within reach. No needs at this time. Will continue to monitor.
[2018-05-25 07:42] LABS: ANION GAP 9 (5-15); CALCIUM 8.5 mg/dL (8.4-11.0); CHLORIDE 104 mmol/L (98-107); CREATININE 0.98 mg/dL (0.55-1.30); GLUCOSE 243 mg/dL (70-99); SODIUM SERUM 136 mmol/L (136-145); UREA NITROGEN, BLOOD 22 mg/dL (8-21)
[2018-05-25 08:53] VITALS: BP_SYST 133
[2018-05-25] MEDS: metFORMIN HCL 500 MG TABLET PO SCH ×2 (08:55→17:53)
[2018-05-25] MEDS: CHOLECALCIFEROL (VITAMIN D3) 2,000 UNIT TABLET PO SCH (08:56)
[2018-05-25] MEDS: LOSARTAN POTASSIUM 50 MG TABLET (COZAAR) PO SCH (08:56)
[2018-05-25] MEDS: guaiFENesin ER 600 MG TAB PO SCH ×2 (08:56→20:36)
[2018-05-25] MEDS: methylPREDNISolone SOD SUCC 40 MG/ML VIAL IVP SCH ×2 (08:57→20:35)
[2018-05-25] MEDS: cycloSPORINE 0.05%, 0.4 ML OPHTHALMIC EMULSION DROPERETTE OP SCH ×2 (08:57→20:35)
[2018-05-25] MEDS: DORZOLAMIDE 2% OPHTHALMIC SOLN 5ML OP SCH ×3 (08:57→20:35)
[2018-05-25] MEDS: AMIODARONE HCL 200 MG TABLET PO SCH (08:57)
[2018-05-25] MEDS: ENOXAPARIN SODIUM 40 MG/0.4 ML SYRINGE SUBCUT SCH (08:59)
[2018-05-25 09:32] LABS: HEMATOCRIT 38.5 % (36-54); HEMOGLOBIN 12.7 g/dL (14.0-18.0); LYMPHOCYTES % (AUTO) 2.2 % (20.5-51.5); MEAN CORPUSCULAR HEMOGLOBIN 30 pg (27-31); MEAN CORPUSCULAR HGB CONC 33 % (32-36); MEAN CORPUSCULAR VOLUME 91 fL (79.0-98.0); PLATELET COUNT (AUTO) 203 K/uL (130-430); RED BLOOD CELL COUNT(AUTO) 4.23 MIL/uL (4.2-6.2); RED CELL DISTRIBUTION WIDTH 15.4 % (9.0-15.0); WHITE BLOOD COUNT (AUTO) 19.1 K/uL (4.8-10.8)
[2018-05-25 09:33] LABS: BASOPHILS % (AUTO) 0.1 % (0.0-2.0); LYMPHOCYTES # (AUTO) 0.4 K/uL (1.0-5.5); MONOCYTES # (AUTO) 0.3 K/uL (0.0-1.0); MONOCYTES % (AUTO) 1.7 % (1.7-9.3); NEUTROPHILS # (AUTO) 18.4 K/uL (1.8-7.7)
[2018-05-25] MEDS: BUDESONIDE 0.5 MG/2 ML AMPUL.NEB INH SCH ×2 (09:45→19:54)
--- NOTE | 2018-05-25 10:42 | NUR ---
Transfer of Care: Report given to Terri CAIN.
--- NOTE | 2018-05-25 11:00 | NUR ---
received report from Amparo CAIN at this time. patient is resting no coughing noted. at this time.
--- NOTE | 2018-05-25 11:25 | NUR ---
Dietitian Recommendations *Recommend continuing Mechanical soft CCHO diet. Please see Nutritional Assessment for details. ISRAEL, YAMIL
[2018-05-25 11:26] VITALS: BP_SYST 143
[2018-05-25] MEDS: cefTRIAXone 1 GM in D5W 50 ML IV SCH (11:44)
--- NOTE | 2018-05-25 14:00 | NUR ---
physical therapy came made walk to the hallway
--- NOTE | 2018-05-25 15:25 | NUR ---
at the bedside. coughing noted but non productive. no sob hob elevated
[2018-05-25 15:35] VITALS: BP_SYST 126
--- NOTE | 2018-05-25 16:45 | NUR ---
CONSULTATION PAGED REASON FOR CONSULTATION:AF WAS CONSULT CALLED?Y PERSON WHO WAS NOTIFIED:TONY CONSULTING PHYSICIAN:AICHA KIDD [employer] SPECIALTY:CARDIO [employer] PHONE NUMBER:[phone] REQUESTING PHYSICIAN:RICA BECK
--- NOTE | 2018-05-25 17:01 | NUR ---
patient is stable. resting.
[2018-05-25] MEDS: MONTELUKAST 10 MG TABLET PO SCH (17:53)
--- NOTE | 2018-05-25 18:14 | NUR ---
latest bs 273 mg/dl. coverage given.
--- NOTE | 2018-05-25 18:15 | NUR ---
due medication given via po.
--- NOTE | 2018-05-25 18:42 | NUR ---
watching tv. dr cerda came and see the patient.
[2018-05-25 19:00] VITALS: BP_SYST 130
--- NOTE | 2018-05-25 19:15 | NUR ---
endorsed to incoming nurse Cruzito CAIN
[2018-05-25 20:00] VITALS: BP_SYST 130
[2018-05-25] MEDS: ZOLPIDEM TARTRATE 5 MG TABLET PO PRN (20:46)
[2018-05-26 00:08] VITALS: BP_SYST 150
[2018-05-26] MEDS: IPRATROPIUM/ALBUTEROL SULFATE 3 ML AMPUL.NEB (DUONEB) INH SCH ×6 (03:00→23:03)
[2018-05-26] MEDS: INSULIN REGULAR, HUMAN 100 UNITS/ML, 10 ML VIAL (novoLIN R) SUBCUT PRN ×2 (06:47→12:09)
[2018-05-26] MEDS: BUDESONIDE 0.5 MG/2 ML AMPUL.NEB INH SCH ×2 (07:10→20:15)
--- NOTE | 2018-05-26 07:53 | NUR ---
OPENING NOTE: RECEIVED REPORT FROM NIGHT NURSE. PATIENT IS RESTING COMFORTABLY IN BED. NO S/S OF DISTRESS OR SOB. PATIENT IS ALERT AND ORIENTED, ABLE TO EXPRESS NEEDS, AND ASK FOR ASSISTANCE. PATIENT ON 2 L NASAL CANNULA. PATIENT JUST RECEIVED BREATHING TREATMENT. IV IS PATENT AND SALINE LOCKED. PATIENT ON SCD'S. CALL LIGHT IN REACH, BED IN LOWEST POSITION, AND WILL CONTINUE TO MONITOR.
[2018-05-26 08:00] VITALS: BP_SYST 147
[2018-05-26] MEDS: CHOLECALCIFEROL (VITAMIN D3) 2,000 UNIT TABLET PO SCH (08:41)
[2018-05-26] MEDS: LOSARTAN POTASSIUM 50 MG TABLET (COZAAR) PO SCH (08:41)
[2018-05-26] MEDS: guaiFENesin ER 600 MG TAB PO SCH (08:42)
[2018-05-26] MEDS: methylPREDNISolone SOD SUCC 40 MG/ML VIAL IVP SCH ×2 (08:42→20:40)
[2018-05-26] MEDS: AMIODARONE HCL 200 MG TABLET PO SCH (08:42)
[2018-05-26] MEDS: ENOXAPARIN SODIUM 40 MG/0.4 ML SYRINGE SUBCUT SCH (08:43)
[2018-05-26] MEDS: metFORMIN HCL 500 MG TABLET PO SCH ×2 (08:46→16:59)
[2018-05-26] MEDS: cycloSPORINE 0.05%, 0.4 ML OPHTHALMIC EMULSION DROPERETTE OP SCH ×2 (08:47→21:00)
[2018-05-26] MEDS: DORZOLAMIDE 2% OPHTHALMIC SOLN 5ML OP SCH ×3 (08:47→20:39)
--- NOTE | 2018-05-26 11:24 | NUR ---
CONSULT ENDOCRINOLOGY DM DR MEDLEY [phone] S/[facility]
[2018-05-26 11:59] LABS: ANION GAP 9 (5-15); CALCIUM 8.8 mg/dL (8.4-11.0); CHLORIDE 102 mmol/L (98-107); CREATININE 0.93 mg/dL (0.55-1.30); GLUCOSE 301 mg/dL (70-99); POTASSIUM 4.2 mmol/L (3.5-5.1); SODIUM SERUM 133 mmol/L (136-145); UREA NITROGEN, BLOOD 26 mg/dL (8-21)
--- NOTE | 2018-05-26 12:00 | NUR ---
RN ROUNDS PATIENT IS RESTING COMFORTABLY IN BED. NO S/S OF DISTRESS OR SOB. PATIENT IS ALERT AND ORIENTED. IS AT BEDSIDE. NO NEEDS EXPRESSED AT THIS TIME. CALL LIGHT IN REACH, BED IN LOWEST POSITION ,AND WILL CONTINUE TO MONITOR.
[2018-05-26 12:06] LABS: HEMATOCRIT 39.4 % (36-54); HEMOGLOBIN 12.8 g/dL (14.0-18.0); LYMPHOCYTES % (AUTO) 1.6 % (20.5-51.5); MEAN CORPUSCULAR HEMOGLOBIN 30 pg (27-31); MEAN CORPUSCULAR HGB CONC 33 % (32-36); MEAN CORPUSCULAR VOLUME 92 fL (79.0-98.0); MONOCYTES % (AUTO) 2.7 % (1.7-9.3); NEUTROPHILS % (AUTO) 95.5 % (40.0-70.0); PLATELET COUNT (AUTO) 232 K/uL (130-430); RED BLOOD CELL COUNT(AUTO) 4.27 MIL/uL (4.2-6.2); RED CELL DISTRIBUTION WIDTH 15.5 % (9.0-15.0); WHITE BLOOD COUNT (AUTO) 15.8 K/uL (4.8-10.8)
[2018-05-26 12:07] LABS: BASOPHILS % (AUTO) 0.2 % (0.0-2.0); LYMPHOCYTES # (AUTO) 0.2 K/uL (1.0-5.5); MONOCYTES # (AUTO) 0.4 K/uL (0.0-1.0); NEUTROPHILS # (AUTO) 15.1 K/uL (1.8-7.7)
[2018-05-26] MEDS: cefTRIAXone 1 GM in D5W 50 ML IV SCH (12:07)
[2018-05-26] MEDS ORDERED: POLYETHYLENE GLYCOL 3350, 17 GM/ POWD.PACK PO ONE (12:15)
[2018-05-26 12:25] VITALS: BP_SYST 128
--- NOTE | 2018-05-26 14:51 | NUR ---
AMBULATION PATIENT AMBULATED TO THE BATHROOM WITH THE WALKER AND ASSISTED BY RN.
[2018-05-26] MEDS: ACETYLCYSTEINE 20% 4 ML VIAL (RT) INH SCH ×2 (15:36→19:39)
--- NOTE | 2018-05-26 15:57 | NUR ---
Discharge Planning: DCP faxed pt referral to [facility] (f [phone] p [phone]) DCP to follow up.
[2018-05-26] MEDS ORDERED: DEXTROSE 50% JECT 50 ML DISP.SYRIN IVP PRN (16:15)
[2018-05-26 16:29] VITALS: BP_SYST 126
[2018-05-26] MEDS: MONTELUKAST 10 MG TABLET PO SCH (16:59)
[2018-05-26] MEDS: INSULIN LISPRO SLIDING SCALE 100 UNITS/ML VIAL (humaLOG) SUBCUT PRN ×2 (17:04→20:51)
--- NOTE | 2018-05-26 18:34 | NUR ---
CLOSING NOTE: PATIENT IS RESTING COMFORTABLY IN BED. NO S/S OF DISTRESS OR SOB. PATIENT IS ALERT AND ORIENTED, ABLE TO EXPRESS NEEDS, AND ASK FOR ASSISTANCE. IS AT BEDSIDE. CALL LIGHT IN REACH, BED IN LOWEST POSITION, AND WILL GIVE REPORT TO NIGHT NURSE.
[2018-05-26 20:00] VITALS: BP_SYST 155
--- NOTE | 2018-05-26 20:00 | NUR ---
Initial Notes Received patient resting in bed, awake, alert, oriented. Patient denies any acute distress at this time. Vital signs stable. Breathing is even and unlabored. IV site patent/clean/dry. Needs addressed. Educated patient regarding use of call light for assistance and fall precautions, patient verbalized understanding. Call light in hand, fall precautions in place.
[2018-05-26] MEDS: ZOLPIDEM TARTRATE 5 MG TABLET PO PRN (20:40)
[2018-05-26] MEDS: POLYETHYLENE GLYCOL 3350, 17 GM/ POWD.PACK PO SCH (20:40)
[2018-05-26] MEDS ORDERED: INSULIN GLARGINE 100 UNITS/ML 10 ML VIAL SUBCUT SCH (21:00)
--- NOTE | 2018-05-26 22:00 | NUR ---
Nursing Notes Patient resting in bed, awake watching TV. Patient denies any acute distress at this time. Breathing is even and unlabored. Snacks given to patient per request. Needs addressed. Call light in hand, fall precautions in place.
--- NOTE | 2018-05-27 | NUR ---
Nursing Notes Patient resting in bed with eyes closed, easily aroused upon nurse entering room. Patient denies any acute distress at this time. Breathing is even and unlabored. Needs addressed. Call light in hand, fall precautions in place, will continue to monitor.
[2018-05-27 00:53] VITALS: BP_SYST 154
--- NOTE | 2018-05-27 02:00 | NUR ---
Nursing Notes Patient resting in bed with eyes closed. No acute distress noted, breathing is even and unlabored. Call light in hand, fall precautions in place.
[2018-05-27] MEDS: IPRATROPIUM/ALBUTEROL SULFATE 3 ML AMPUL.NEB (DUONEB) INH SCH ×3 (03:00→11:18)
--- NOTE | 2018-05-27 04:15 | NUR ---
Nursing Notes Patient remains resting in bed with eyes closed. No acute distress noted. Breathing is even and unlabored. Call light in hand, fall precautions in place. Will continue to monitor for changes and safety.
[2018-05-27] MEDS: INSULIN LISPRO SLIDING SCALE 100 UNITS/ML VIAL (humaLOG) SUBCUT PRN ×2 (06:09→11:53)
--- NOTE | 2018-05-27 06:38 | NUR ---
Closing Notes Patient resting in bed with eyes closed, easily aroused. Patient denies any acute distress or pain at this time. Breathing is even and unlabored. IV site patent/clean/dry, no S/S infection/infiltration noted. Needs addressed throughout shift. Call light in hand, fall precautions in place. will continue to monitor for changes and safety, and endorse all patient care/needs to oncoming nurse.
[2018-05-27] MEDS: BUDESONIDE 0.5 MG/2 ML AMPUL.NEB INH SCH (07:16)
[2018-05-27] MEDS: ACETYLCYSTEINE 20% 4 ML VIAL (RT) INH SCH (07:16)
--- NOTE | 2018-05-27 07:21 | NUR ---
OPENING NOTE: MORNING REPORT WAS TAKEN FROM WINDOWS [employer] ADMINISTRATOR NURSE AT BEDSIDE. PATIENT IS AWAKE NOT COMPLAINING OF ANY DISTRESS. IV FLUIDS ARE INFUSING. PATIENT ON ROOM AIR BUT GETTING BREATHING TREATMENT AT MOMENT. BED ALARM IS ON AND CALL LIGHT IS IN REACH. BED IN LOWEST POSITION WITH SIDE RAILS UP. WILL CONTINUE TO MONITOR.
[2018-05-27 07:29] LABS: ANION GAP 7 (5-15); CALCIUM 8.6 mg/dL (8.4-11.0); CHLORIDE 103 mmol/L (98-107); CREATININE 0.93 mg/dL (0.55-1.30); GLUCOSE 275 mg/dL (70-99); POTASSIUM 4.4 mmol/L (3.5-5.1); SODIUM SERUM 137 mmol/L (136-145); UREA NITROGEN, BLOOD 26 mg/dL (8-21)
[2018-05-27 07:47] LABS: ALANINE AMINOTRANSFERASE 18 U/L (12-78); ALBUMIN 2.7 g/dL (3.4-4.8); ASPARTATE AMINOTRANSFERASE 11 U/L (10-37); TOTAL BILIRUBIN 0.4 mg/dL (0.0-1.0)
[2018-05-27 07:50] LABS: HEMOGLOBIN 13.3 g/dL (14.0-18.0); MEAN CORPUSCULAR HEMOGLOBIN 30 pg (27-31); MEAN CORPUSCULAR HGB CONC 33 % (32-36); MEAN CORPUSCULAR VOLUME 91 fL (79.0-98.0); PLATELET COUNT (AUTO) 214 K/uL (130-430); RED BLOOD CELL COUNT(AUTO) 4.39 MIL/uL (4.2-6.2); WHITE BLOOD COUNT (AUTO) 9.7 K/uL (4.8-10.8)
[2018-05-27 07:51] LABS: BASOPHILS % (AUTO) 0.1 % (0.0-2.0); LYMPHOCYTES # (AUTO) 0.3 K/uL (1.0-5.5); LYMPHOCYTES % (AUTO) 3.4 % (20.5-51.5); MONOCYTES # (AUTO) 0.2 K/uL (0.0-1.0); MONOCYTES % (AUTO) 1.8 % (1.7-9.3); NEUTROPHILS # (AUTO) 9.2 K/uL (1.8-7.7); NEUTROPHILS % (AUTO) 94.7 % (40.0-70.0)
[2018-05-27] MEDS: metFORMIN HCL 500 MG TABLET PO SCH (08:23)
[2018-05-27] MEDS: LOSARTAN POTASSIUM 50 MG TABLET (COZAAR) PO SCH (08:24)
[2018-05-27] MEDS: CHOLECALCIFEROL (VITAMIN D3) 2,000 UNIT TABLET PO SCH (08:24)
[2018-05-27] MEDS: AMIODARONE HCL 200 MG TABLET PO SCH (08:24)
[2018-05-27] MEDS: POLYETHYLENE GLYCOL 3350, 17 GM/ POWD.PACK PO SCH (08:25)
[2018-05-27] MEDS: methylPREDNISolone SOD SUCC 40 MG/ML VIAL IVP SCH (08:25)
[2018-05-27] MEDS: DORZOLAMIDE 2% OPHTHALMIC SOLN 5ML OP SCH ×2 (08:28→15:56)
[2018-05-27] MEDS: ENOXAPARIN SODIUM 40 MG/0.4 ML SYRINGE SUBCUT SCH (08:28)
[2018-05-27] MEDS: cycloSPORINE 0.05%, 0.4 ML OPHTHALMIC EMULSION DROPERETTE OP SCH (08:30)
--- NOTE | 2018-05-27 08:30 | NUR ---
MORNING MEDICATIONS: GAVE PATIENT MORNING MEDICATIONS. PATIENT SWALLOWED WITH OUT DIFFICULTIES. ALL NEEDS MET. CALL LIGHT IS IN REACH. WILL CONTINUE TO MONITOR.
[2018-05-27 08:49] VITALS: BP_SYST 157
[2018-05-27 10:09] VITALS: BP_SYST 157
[2018-05-27] MEDS: cefTRIAXone 1 GM in D5W 50 ML IV SCH (11:53)
[2018-05-27 12:00] VITALS: BP_SYST 147
--- NOTE | 2018-05-27 12:00 | NUR ---
NOTE: PATIENT LAYING DOWN IN BED NOT COMPLAINING OF ANY DISTRESS. SON AT BEDSIDE ABOUT TO LEAVE. PATIENT SAID HE IS TIRED. PATIENT SAID HE DOESNT WANT TO EAT LUNCH AT MOMENT. CALL LIGHT IS IN REACH. WILL CONTINUE TO MONITOR . Addendum: 05/27/18 at 1243 by Ines Peters RN WRONG PT.
--- NOTE | 2018-05-27 12:01 | NUR ---
NOTE: PATIENT SITTING IN BED WITH AT BEDSIDE. PATIENT NOT COMPLAINING OF ANY DISTRESS AT MOMENT. CALL LIGHT IS IN REACH. WILL CONTINUE TO MONITOR.
--- NOTE | 2018-05-27 12:15 | NUR ---
DC Planning: Evaluation for home O2: The pt. does not meet medicare guideline for home O2. Oxygen saturation 94% ra post ambulation with PT. Rechecked saturation at rest on room air today =94% per Ines.
--- NOTE | 2018-05-27 13:52 | NUR ---
Discharge Planning: DCP faxed pt order to [facility] (f [phone] p [phone]) accepted pt, Lizzie at [facility] [place] (f [phone] p [phone]) will supply the nebulizer medication. Addendum: 05/27/18 at 1628 by Bianca Wilkerson DP DCP faxed RX for nebulizer medication to [facility] [place] (f [phone] p [phone])
[2018-05-27 14:13] VITALS: BP_SYST 147
--- NOTE | 2018-05-27 14:20 | NUR ---
NOTE: PATIENT LAYING IN BED NOT COMPLAINING OF ANY DISTRESS. WAITING FOR TO COME BACK SO PATIENT CAN BE DISCHARGED. CALL LIGHT IS IN REACH. WILL CONTINUE TO MONITOR.
--- NOTE | 2018-05-27 16:10 | NUR ---
D/C Patient Patient given medication reconciliation form and D/C instructions. Exit Care provided. Patient verbalized understanding. MD discussed with patient the results and treatment provided. Ambulatory with steady gait for discharge to home. Patient in stable condition, ID band removed. IV catheter removed, intact and dressing applied, no active bleeding. Rx of antibiotic, metformin given. Patient educated on pain management. All belongings sent with patient. Patient wheeled out to front by me.
[2018-05-27] MEDS ORDERED: INSULIN GLARGINE 100 UNITS/ML 10 ML VIAL SUBCUT SCH (21:00)
--- NOTE | 2018-06-02 10:51 | NUR ---
Discharge Follow Up Phone Call [employer] C[employer]TER phoned patient, , and spoke with patient's , Muna. Muna stated that patient is doing "great". They just returned from outpatient PT at [facility]. They declined home health services with [facility] as they felt patient would progress further at [facility]. [facility] delivered the nebulizer medications and will retest patient to see if he will qualify for home O2. Patient has a follow up appointment with his PCP on 06/02/[address] Aquino, pulmonology, on 06/12/18. Patient is using his blood glucose monitor as directed. They have no questions or concerns.
== END 2018-05-27 16:10 | disposition home health service (06) | DRG 871 ==
LOC: SED 18:52 → STU 23:18 → SMU 05-26 12:03
PROVIDERS: ADMIT Internal Medicine; ATTEND Internal Medicine
DX: A41.9 Sepsis, unspecified organism (principal); J96.01 Acute respiratory failure with hypoxia; J44.1 Chronic obstructive pulmonary disease with (acute) exacerbation; E44.1 Mild protein-calorie malnutrition; D68.59 Other primary thrombophilia; J20.9 Acute bronchitis, unspecified; E11.65 Type 2 diabetes mellitus with hyperglycemia; I10 Essential (primary) hypertension; I25.10 Atherosclerotic heart disease of native coronary artery without angina pectoris; I27.29 Other secondary pulmonary hypertension; I27.81 Cor pulmonale (chronic); I48.0 Paroxysmal atrial fibrillation; N40.0 Benign prostatic hyperplasia without lower urinary tract symptoms; E66.9 Obesity, unspecified; G31.84 Mild cognitive impairment of uncertain or unknown etiology; Z79.4 Long term (current) use of insulin; Z86.718 Personal history of other venous thrombosis and embolism; Z87.891 Personal history of nicotine dependence; Z99.81 Dependence on supplemental oxygen; Z91.018 Allergy to other foods; Z68.31 Body mass index [BMI] 31.0-31.9, adult
CPT/HCPCS: 36415; 71045; 80048; 80053; 81003; 82962; 83036; 83605; 83880; 84484; 85025; 85610-TC; 85730-TC; 86710; 87040-TC; 87086; 93005; 94640; 94664; 94760; 97110-GP; 97116-GP; 97530-GP; 99285; G0378; J0456; J0696; J1030; J1650; J1815; J1956; J2930; J7040; J7050; J7060; J7608; J7620; J7626

== ENCOUNTER 2019-03-10 15:45 | Outpatient (CLI) | payer OTHER, MEDICARE ==
[~2019-03-10 15:45] MED LIST changes: +ALPHAGAN1 OP; -ALPHAGANP LEFT EYE; -ATRMDI INH; +AZOEYE OP; -BACL20 PO; -BUDE6HFA INH; -DORZ10DR9 EACH EYE; -FAMO20TA8 PO; -GLUXR500 PO; +GUAI600T86 PO; -HUMIBID PO; -IPRA4AER INH; -LEVA1.2527 NEB; +LOSA100T3 PO; -METO25TA3 PO; -RESEYE EACH EYE; +RESEYE OP; -RIVA20TA PO; +SAW500CA12 PO; +VITD2000 PO
== END 2019-03-11 13:40 | disposition home or self-care (01) ==
LOC: SRD 15:45
PROVIDERS: ATTEND Specialist
DX: I70.90 Unspecified atherosclerosis (principal); R91.1 Solitary pulmonary nodule; J43.9 Emphysema, unspecified; R91.8 Other nonspecific abnormal finding of lung field; R06.02 Shortness of breath
CPT/HCPCS: 71046-TC

== ENCOUNTER 2019-03-20 12:53 | Outpatient (CLI) | payer OTHER, MEDICARE | END 2019-03-20 18:07 | disposition home or self-care (01) | LOC: SRD 12:53 | PROVIDERS: ATTEND Specialist | DX: J44.9 Chronic obstructive pulmonary disease, unspecified (principal); J18.9 Pneumonia, unspecified organism | CPT/HCPCS: 71046-TC ==

== ENCOUNTER 2019-08-25 11:04 | Emergency (ER) | payer OTHER, MEDICARE ==
[~2019-08-25] VITALS: Ht 185.4 cm; Wt 113.4 kg
--- NOTE | 2019-08-25 11:06 | NUR ---
Patient to ER bed 03 to gown for evaluation. Side rails up.
[2019-08-25 11:09] VITALS: BP_SYST 152
--- NOTE | 2019-08-25 11:10 | NUR ---
Pt BP 170/94, Per Dr Cedillo hold hydralazine at this time, will cont to monitor
[2019-08-25] MEDS ORDERED: hydrALAZINE HCL 20 MG/ML VIAL IVP ONE (12:15)
--- NOTE | 2019-08-25 13:31 | NUR ---
DR DOE AT BEDSIDE FOR EVALUATION
--- NOTE | 2019-08-25 13:32 | NUR ---
Pt brought by family , A&Ox4, pt presents to ER with L upper leg pain, per patient he had an ultrasound today indicating an blood clot, pt skin pink and warm, cap refill <3, VSS, respirations even and unlabored.
--- NOTE | 2019-08-25 14:46 | NUR ---
YOLANDA, OF PT, REQUESTED CALL OF ANY UPDATE [phone]
[2019-08-25] MEDS ORDERED: RIVAROXABAN 15 MG TABLET PO ONE (15:00)
[2019-08-25] MEDS ORDERED: APIXABAN 2.5 MG TABLET PO ONE (15:00)
[2019-08-25] MEDS ORDERED: hydrALAZINE HCL 20 MG/ML VIAL ONE (15:22)
[2019-08-25 15:35] VITALS: BP_SYST 163
--- NOTE | 2019-08-25 15:36 | NUR ---
Patient given written and verbal discharge instructions and verbalizes understanding. ER MD discussed with patient the results and treatment provided. Patient in stable condition. ID arm band removed. IV catheter removed intact and dressing applied, no active bleeding. Rx of Xarelto given. Patient educated on pain management and to follow up with PMD. Pain Scale 0/10 . Opportunity for questions provided and answered. Medication side effect fact sheet provided.
== END 2019-08-25 15:36 | disposition home or self-care (01) ==
LOC: SED 12:13
DX: I82.4Z2 Acute embolism and thrombosis of unspecified deep veins of left distal lower extremity (principal); J44.9 Chronic obstructive pulmonary disease, unspecified; I10 Essential (primary) hypertension; E11.9 Type 2 diabetes mellitus without complications; Z86.718 Personal history of other venous thrombosis and embolism; Z86.73 Personal history of transient ischemic attack (TIA), and cerebral infarction without residual deficits; Z79.899 Other long term (current) drug therapy; Z88.8 Allergy status to other drugs, medicaments and biological substances
CPT/HCPCS: 99283; J0360